=== PATIENT | female | born 1940 | race Caucasian/White ===

== ENCOUNTER 2022-01-11 16:21 | Emergency (ER) | payer MEDICARE, SELFPAY ==
[2022-01-11 16:39] VITALS: BP 140/68; PULSE 92; RESP 16; TEMP 36.7; O2SAT 99
--- NOTE | 2022-01-11 17:25 | ED.SKABFB ---
HPI - Skin/Abscess/Foreign Bdy General Chief complaint: Skin/Abscess/Foreign Body Stated complaint: right leg possible ulcer Time Seen by Provider: 01/11/22 16:50 Source: patient, family, RN notes reviewed and old records reviewed Mode of arrival: ambulatory (with cane) Limitations: no limitations History of Present Illness HPI narrative: 81 year old female accompanied by daughter presents to [facility] with complaints of having lesion to the right lower posterior lateral aspect of leg for about 1 year duration. Patient reports that she has no pain to the area, denies any drainage from lesion area, warmth or any itching. Patient states that she forgot to show it to her doctor at last visit on December 18 where she was told that he was quitting practice and gave her 3 months of her medication. Patient reports that she takes care of her who has had to have amputations of his leg due to diabetes. Patient does have some swelling to bilateral lower extremities, Patient states that since she had a stroke 2 years ago she has had some swelling. MD complaint: lesion (status ulcer with skin discolration) Onset (ago): year(s) (1) Location: [facility] Treatments prior to arrival: other (applies lotion to area.) Related Data Home Medications Medication Instructions Recorded Confirmed amlodipine 5 mg PO DAILY 01/11/22 01/11/22 aspirin 81 mg PO DAILY 01/11/22 01/11/22 atorvastatin 40 mg PO DAILY 01/11/22 01/11/22 lisinopril 10 mg PO DAILY 01/11/22 01/11/22 metformin 500 mg PO DAILY 01/11/22 01/11/22 Allergies Allergy/AdvReac Type Severity Reaction Status Date / Time No Known Allergies Allergy Verified 01/11/22 16:45 Review of Systems Review of Systems: CONSTITUTIONAL: Denies fever, chills, or sweats. EYES: Denies visual changes, redness, or discharge. ENT: Denies rhinorrhea, congestion, sore throat, or otalgia. CARDIOVASCULAR: Denies chest pain, palpitations, or edema. RESPIRATORY: Denies cough or dyspnea. GASTROINTESTINAL: Denies abdominal pain, nausea, vomiting, or diarrhea. GENITOURINARY: Denies dysuria or hematuria. SKIN: Positive for stasis ulcer to right lower leg with some scabbing and skin discoloration.. MUSCULOSKELETAL: Denies back pain, joint pain, or myalgia. NEUROLOGIC: Denies headache, numbness, some weakness right side since CVA 2 years ago. PSYCHIATRIC: Denies anxiety or depression. All systems reviewed & are unremarkable except as noted in HPI and below PMFSH Past Medical History Medical History (Updated 01/11/22 @ 18:23 by Kayla Pollack NP) CVA (cerebral vascular accident) Diabetes Patient reports that she is pre diabetic Elevated cholesterol Hypertension Social History Social History (Updated 01/11/22 @ 18:12 by Kayla Pollack NP) Smoking status: Never smoker Alcohol intake: never Substance use: never Living arrangements: with family Gender identity (if verbalized by the patient): Female Comments At time of signature, agree with nursing past medical, surgical, social and family history. There is no relevant family history pertinent to the presenting complaint Exam Narrative: GENERAL: Well-appearing, well-nourished, and in no acute distress. HEAD: Normocephalic, atraumatic. EYES: PERRLA and EOMI. ENT: Nares clear, no rhinorrhea or epistaxis. Mucous membranes moist.TM's normal with good light reflex, throat pink with no lesions or exudates or any tonsil swelling NECK: Supple.no lymphadenopathy CHEST: Clear to auscultation. No respiratory distress.SAO2 99% on room air HEART: Regular rate and rhythm. No murmur heard. Normal peripheral pulses. ABDOMEN: Soft, nontender, nondistended, normal active bowel sounds. EXTREMITIES: Normal range of motion, some weakness to right leg related to CVA, bilateral pretibial and pedal edema to lower extremities. width 10 cm and length 13 which includes some surrounding redness. pedal pulse palpable to her right foot. SKIN: Warm, dry, venous stasis ulcer right l
== END 2022-01-11 18:07 | disposition home or self-care (01) ==
PROVIDERS: Emergency Provider Registered Nurse
DX: L97.919 Non-pressure chronic ulcer of unspecified part of right lower leg with unspecified severity (principal); I87.8 Other specified disorders of veins; Z86.73 Personal history of transient ischemic attack (TIA), and cerebral infarction without residual deficits; E78.00 Pure hypercholesterolemia, unspecified; I10 Essential (primary) hypertension; R73.03 Prediabetes
CPT/HCPCS: 99213; G0463

== ENCOUNTER 2022-02-07 14:03 | Outpatient (CLI) | payer MEDICARE, SELFPAY ==
--- NOTE | ~2022-02-07 | US_ITS ---
EXAMINATION: US venous doppler LE RT DATE: 02/07/2022 14:27 INDICATION: Right lower limb swelling TECHNIQUE: Grayscale ultrasound images without and with compression and Doppler ultrasound images of the right lower extremity veins were obtained. COMPARISON: None. FINDINGS: The visualized portions of right common femoral vein, profunda (deep) femoral vein, femoral vein, pop liteal vein, peroneal trunk, posterior tibial veins, gastrocnemius vein and greater saphenous vein ou tflow are patent. IMPRESSION: 1. No deep venous thrombosis in the right lower limb. Reviewed, dictated and finalized at location A.
== END 2022-02-07 14:04 | disposition home or self-care (01) ==
LOC: ANHIMG 14:04
PROVIDERS: PCP Family Medicine; Visit Provider Family Medicine
DX: I87.2 Venous insufficiency (chronic) (peripheral) (principal); R60.9 Edema, unspecified; L97.909 Non-pressure chronic ulcer of unspecified part of unspecified lower leg with unspecified severity
CPT/HCPCS: 93971

== ENCOUNTER 2022-03-09 14:21 | Outpatient (CLI) | payer MEDICARE, SELFPAY ==
--- NOTE | ~2022-03-09 | US_ITS ---
EXAMINATION: US art doppler w press LE BI DATE: 03/09/2022 15:14 INDICATION: Lower limb swelling TECHNIQUE: Segmental pressures and plethysmographic and Doppler waveforms of the brachial and lower e xtremity arteries were obtained. COMPARISON: None. FINDINGS: Right and left brachial artery pressures of 123 mm Hg and 129 mm Hg, respectively, are concordant (no rmal difference <= 30 mmHg). The right and left high-thigh pressure indices are 1.57 and 1.19, respec tively (normal > 1.2). The right ankle-brachial index (ROYCE) is 1.05 (normal >= 0.9-1). The right great toe-brachial index (T BI) is 0.91 (normal >= 0.6-0.8). The right lower extremity segmental pressure gradients are increased between the right [id number] popliteal artery and the arteries at the right ankle (normal gradie nts <= 20-30 mmHg between adjacent levels on the same leg or the same levels on the two legs). Arteri al waveforms are biphasic with brisk systolic upstrokes throughout the arteries of the right lower li mb. The left ROYCE is 0.99. The left TBI is 0.78. The left lower extremity segmental pressure gradients are increased between the left [id number] popliteal artery and the left dorsalis pedis artery. Arter ial waveforms are biphasic with brisk systolic upstrokes throughout the arteries of the left lower li mb. IMPRESSION: 1. No significant arterial occlusive disease to either lower limb with normal bilateral ABIs and TBIs . Reviewed, dictated and finalized at location B. IMPRESSION: 1. No significant arterial occlusive disease to either lower limb with normal b ilateral ABIs and TBIs.
== END 2022-03-09 14:22 | disposition home or self-care (01) ==
PROVIDERS: PCP Family Medicine; Visit Provider Family Medicine
DX: R60.0 Localized edema (principal); L97.909 Non-pressure chronic ulcer of unspecified part of unspecified lower leg with unspecified severity; I87.2 Venous insufficiency (chronic) (peripheral); M79.89 Other specified soft tissue disorders
CPT/HCPCS: 93923

== ENCOUNTER 2022-06-10 11:51 | Outpatient (RCR) | payer MEDICARE, SELFPAY ==
[2022-06-10 13:49] VITALS: BMI 24.0
== END 2022-08-29 12:47 | disposition home or self-care (01) ==
LOC: ANHWOC 11:51
PROVIDERS: PCP Family Medicine; Visit Provider Family Medicine
DX: I87.2 Venous insufficiency (chronic) (peripheral) (principal); L97.909 Non-pressure chronic ulcer of unspecified part of unspecified lower leg with unspecified severity; T14.8XXD Other injury of unspecified body region, subsequent encounter
CPT/HCPCS: 99213; G0463

== ENCOUNTER 2022-09-07 13:52 | Outpatient (CLI) | payer MEDICARE, SELFPAY ==
[2022-09-07 19:26] LABS: Basophils Percent Auto 0.5 % (0.2-1.2); Eosinophils Absolute Auto 0.1 K/mm3 (0-0.3); Eosinophils Percent Auto 2.1 % (0-4.4); Hemoglobin 12.4 g/dL (12.0-15.0); Immature Granulocyte Absolute 0.01 K/mm3 (0.00-0.031); Immature Granulocyte Percent A 0.2 % (0-0.5); Lymphocytes Absolute Auto 2.12 K/mm3 (0.9-3.2); Lymphocytes Percent Auto 34.1 % (18.3-44.2); Mean Corpuscular HGB Conc 31.8 g/dl (32-36); Mean Corpuscular Hemoglobin 30.2 pg (26-34); Mean Corpuscular Volume 95.1 fl (80-100); Mean Platelet Volume 11.9 fl (7.4-10.4); Monocytes Absolute Auto 0.7 K/mm3 (0.1-0.6); Monocytes Percent Auto 11.1 % (2.6-8.5); Neutrophils Absolute Auto 3.2 K/mm3 (1.3-6.7); Platelet Count Result 177 k/mm3 (150-375); Red Cell Distribution Width 13.3 % (11.5-14.5); White Blood Count 6.2 K/mm3 (4.5-10.0)
[2022-09-07 19:33] LABS: Alanine Aminotransferase 22 U/L (6-35); Albumin Level 4.3 g/dL (3.5-5.1); Alkaline Phosphatase 85 U/L (38-126); Anion Gap 14 mmol/L (8-16); Aspartate Amino Transferase 43 U/L (14-36); Bilirubin,Total 0.6 mg/dL (0.2-1.3); Blood Urea Nitrogen 20 mg/dL (7-17); Carbon Dioxide 27 mmol/L (22-30); Chloride 100 mmol/L (98-107); Estimated Glomerular Filt Rate > 60; Glucose 118 mg/dL (65-110); Hemoglobin A1C 6.1 % (<5.7); Potassium 3.8 mmol/L (3.4-5.0); Sodium 141 mmol/L (137-145)
== END 2022-09-07 13:53 | disposition home or self-care (01) ==
LOC: ANHBWCLAB 13:54
PROVIDERS: PCP Family Medicine; Visit Provider Family Medicine
DX: E11.9 Type 2 diabetes mellitus without complications (principal); I10 Essential (primary) hypertension; R21 Rash and other nonspecific skin eruption
CPT/HCPCS: 36415; 80053; 83036; 85025

== ENCOUNTER 2023-01-30 14:42 | Outpatient (CLI) | payer MEDICARE, SELFPAY ==
--- NOTE | ~2023-01-30 | XR_ITS ---
EXAM: XR lumbar spine 2-3V DATE: 01/30/2023 15:50 HISTORY: M54.50 - Low back pain, unspecified . COMPARISON: None available. FINDINGS: Osteopenia. Moderate lumbar scoliosis. 5 nonrib-bearing lumbar-type vertebral bodies. Pedic les intact. Mild grade 1 retrolistheses at L1-2, L2-3, and L5-S1. Mild grade 1 anterolisthesis at L4- 5. Vertebral body heights preserved. Multilevel disc space narrowing and marginal osteophytosis. Mult ilevel facet sclerosis and hypertrophy, with interspinous narrowing. Cholecystomy clips. Abdominal ao rtic calcification without evident aneurysm. No fracture or dislocation. IMPRESSION: Multilevel moderate degenerative disc disease. Multilevel moderate facet arthropathy. Reviewed, dictated and finalized at location K.
[2023-01-30 20:01] LABS: Alanine Aminotransferase 24 U/L (6-35); Alkaline Phosphatase 96 U/L (38-126); Anion Gap 7 mmol/L (8-16); Aspartate Amino Transferase 40 U/L (14-36); Bilirubin,Total 0.9 mg/dL (0.2-1.3); Blood Urea Nitrogen 19 mg/dL (7-17); Carbon Dioxide 27 mmol/L (22-30); Chloride 105 mmol/L (98-107); Estimated Glomerular Filt Rate > 60; Glucose 112 mg/dL (65-110); Potassium 4.7 mmol/L (3.4-5.0); Sodium 139 mmol/L (137-145)
[2023-01-30 21:40] LABS: Hemoglobin A1C 5.9 % (<5.7)
== END 2023-01-30 14:43 | disposition home or self-care (01) ==
PROVIDERS: PCP Family Medicine; Visit Provider Family Medicine
DX: E11.9 Type 2 diabetes mellitus without complications (principal); M54.50 Low back pain, unspecified; M51.36 Other intervertebral disc degeneration, lumbar region
CPT/HCPCS: 36415; 72100; 80053; 83036

== ENCOUNTER 2023-02-02 16:14 | Outpatient (CLI) | payer MEDICARE, SELFPAY ==
[2023-02-02 18:55] LABS: Creatinine Urine 234.1 mg/dL
[2023-02-02 19:00] LABS: Microalbumin Urine Random 35.2 mg/L (0-16.7)
== END 2023-02-02 16:15 | disposition home or self-care (01) ==
LOC: ANHBWCLAB 16:15
PROVIDERS: PCP Family Medicine; Visit Provider Family Medicine
DX: E11.9 Type 2 diabetes mellitus without complications (principal)
CPT/HCPCS: 82043

== ENCOUNTER 2023-09-23 13:52 | Emergency (ER) | payer MEDICARE, SELFPAY ==
[2023-09-23 14:01] VITALS: BP 135/66; PULSE 82; RESP 16; TEMP 36.4; O2SAT 99
--- NOTE | 2023-09-23 14:15 | ED.SKABFB ---
HPI - Skin/Abscess/Foreign Bdy General Chief complaint: Extremity Problem,Nontraumatic Stated complaint: Skin Sore/ Right Leg History of Present Illness HPI narrative: patient presents with chronic leg ulcer to right lower extremity. patient has been referred to wound center in the past and present today with concerns for cellulitis to lower extremity no calf pain and no concern for DVT, redness and tenderness to lower leg. Related Data Allergies Allergy/AdvReac Type Severity Reaction Status Date / Time No Known Allergies Allergy Verified 09/23/23 14:14 Review of Systems Review of Systems: CONSTITUTIONAL: Denies fever, chills, or sweats. EYES: Denies visual changes, redness, or discharge. ENT: Denies rhinorrhea, congestion, sore throat, or otalgia. CARDIOVASCULAR: Denies chest pain, palpitations, or edema. RESPIRATORY: Denies cough or dyspnea. GASTROINTESTINAL: Denies abdominal pain, nausea, vomiting, or diarrhea. GENITOURINARY: Denies dysuria or hematuria. SKIN: Denies rash or itching. MUSCULOSKELETAL: Denies back pain, joint pain, or myalgia. NEUROLOGIC: Denies headache, numbness, or weakness. PSYCHIATRIC: Denies anxiety or depression. [facility] Past Medical History Medical History (Updated 09/23/23 @ 14:17 by ANGELIQUE Montoya) CVA (cerebral vascular accident) Diabetes Patient reports that she is pre diabetic Elevated cholesterol Hypertension Social History Social History (Updated 04/24/23 @ 15:36 by Renetta Jean MA) Smoking status: Never smoker Alcohol intake: never Substance use: never Lack of Transportation: No Lack of Food: Never True Current Housing: I Have Housing Concerned About Future Housing: No Difficulty Paying Gas/Electric Bills: No Difficulty Paying for Meds: No Currently Unemployed: No Education: High School Diploma/GED Difficulty w/ Childcare or Family Care: No Living arrangements: with family Gender identity (if verbalized by the patient): Female Comments At time of signature, agree with nursing past medical, surgical, social and family history. There is no relevant family history pertinent to the presenting complaint Exam Narrative: GENERAL: Well-appearing, well-nourished, and in no acute distress. HEAD: Normocephalic, atraumatic. EYES: PERRLA and EOMI. ENT: Nares clear, no rhinorrhea or epistaxis. Mucous membranes moist. NECK: Supple. CHEST: Clear to auscultation. No respiratory distress. HEART: Regular rate and rhythm. No murmur heard. Normal peripheral pulses. ABDOMEN: Soft, nontender, nondistended, normal active bowel sounds. EXTREMITIES: Normal range of motion. No edema. Lower extremity: RIGHT HIP EXAM - SKIN INTACT. NO BRUISING, REDNESS OR SWELLING. NO INGUINAL MASSES OR LYMPHADENOPATHY. GENERALIZED FEMUR AND HIP TENDERNESS. PATIENT HOLDING HIP IN EXTERNAL ROTATION WITH SLIGHT FLEXION OF KNEE. NO BUTTOCK OR SI JOINT TENDERNESS. ROM LIMITED DUE TO PAIN. NORMAL FEMORAL PULSES. BACK EXAM - NO VERTEBRAL POINT SPECIFIC TENDERNESS OR STEP OFFS. NORMAL ROM OF BACK. NORMAL FLEXION AND EXTENSION OF BACK. NO CVA TENDERNESS. LEG EXAM - NO CALF OR ANKLE SWELLING, DISCOLORATION. NORMAL FOOT SENSATION AND CAP REFILL. NORMAL DP PULSE. . 3cm long by 2cm wide area to right lower leg consistent with developing cellulitis. no drainage and no streaking SKIN: Warm, dry, no rash. NEURO: No focal deficits. Alert and oriented x3. [place] Coma Scale Eye Opening: Spontaneous 4 [place] Coma Scale Motor: Obeys Commands 6 [place] Coma Scale Verbal: Oriented 5 [place] Coma Scale Total 15 Course Course Level of Care: Express Care Visit Vital Signs Vital signs: Vital Signs Temperature 36.4 C L 09/23/23 14:01 Pulse Rate 82 09/23/23 14:01 Respiratory Rate 16 09/23/23 14:01 Blood Pressure 135/66 09/23/23 14:01 Pulse Oximetry 99 09/23/23 14:01 Oxygen Delivery Room Air 09/23/23 14:01 Temperature 36.4 C L 09/23/23 14:01 Pulse Rat
== END 2023-09-23 14:20 | disposition home or self-care (01) ==
PROVIDERS: Emergency Provider Nurse Practitioner Family; PCP Family Medicine
DX: L97.819 Non-pressure chronic ulcer of other part of right lower leg with unspecified severity (principal); L03.115 Cellulitis of right lower limb; E11.9 Type 2 diabetes mellitus without complications; I10 Essential (primary) hypertension; Z86.73 Personal history of transient ischemic attack (TIA), and cerebral infarction without residual deficits
CPT/HCPCS: 99213; G0463

== ENCOUNTER 2023-10-26 16:08 | Emergency (ER) | payer MEDICARE, SELFPAY ==
[2023-10-26 16:15] VITALS: BP 128/61; PULSE 84; RESP 16; TEMP 36.2; O2SAT 97
[2023-10-26 16:28] VITALS: BP 128/61; PULSE 84; RESP 16; TEMP 36.2; O2SAT 97
--- NOTE | 2023-10-26 16:35 | ED.GENADULT ---
HPI - General Adult General Chief complaint: Skin/Abscess/Foreign Body Stated complaint: Rash Time Seen by Provider: 10/26/23 16:35 Source: patient, RN notes reviewed and old records reviewed Mode of arrival: ambulatory Limitations: no limitations History of Present Illness HPI narrative: 83-year-old female presents to the [facility] with her son with complaints of dryness redness to the dorsal aspect bilateral thumbs, dorsal aspect right hand, some redness to the dorsal aspect left hand. Patient reports that she had a reaction to clindamycin a month ago. Was worried that this is still a reaction. 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 Reporting pain to the joints. States that she has been pouring alcohol, iodine to her hands. Dorsal aspect of the hands and thumbs are only affected Related Data Allergies Allergy/AdvReac Type Severity Reaction Status Date / Time clindamycin Allergy Unknown Rash Verified 10/16/23 14:45 Review of Systems Review of Systems: All systems reviewed & are unremarkable except as noted in HPI and below Constitutional: Constitutional: Reports no additional constitutional complaints Eyes: Eyes: Reports no additional eye complaints ENT: Reports system reviewed and no additional complaints, except as documented Cardiovascular: Cardiovascular: Reports no additional cardiovascular complaints, Denies chest pain and Denies dyspnea Respiratory: Respiratory: Reports no additional respiratory complaints, Denies chest congestion, Denies cough and Denies dyspnea Gastrointestinal: Gastrointestinal: Reports no additional gastrointestinal complaints, Denies abdominal pain, Denies nausea and Denies vomiting Musculoskeletal: Musculoskeletal: Reports no additional musculoskeletal complaints Integumentary/Breasts: Skin/Breast: Reports as per HPI Neurologic: Reports system reviewed and no additional complaints, except as documented Psychiatric: Psychiatric: Reports no additional psychiatric complaints Allergic/Immunologic: Allergic/Immunologic: Reports no additional allergic/immunologic complaints [facility] Past Medical History Medical History CVA (cerebral vascular accident) Diabetes Patient reports that she is pre diabetic Elevated cholesterol Hypertension Social History Social History Smoking status: Never smoker Alcohol intake: never Substance use: never Lack of Transportation: No Lack of Food: Never True Current Housing: I Have Housing Concerned About Future Housing: No Difficulty Paying Gas/Electric Bills: No Difficulty Paying for Meds: No Currently Unemployed: No Education: High School Diploma/GED Difficulty w/ Childcare or Family Care: No Living arrangements: with family Gender identity (if verbalized by the patient): Female Comments At the time of my signature, I reviewed and agree with the nursing past medical, surgical, social, and family history. There is no relevant family history pertinent to the patient complaint. Exam Const: General: cooperative, comfortable, no acute distress, well developed, alert, ill appearing chronically and well nourished Nutritional Appearance: well nourished Orientation/consciousness: patient oriented x3 Limitations: no limitations HENMT: Head: normal to inspection Ears: hearing grossly normal bilaterally and external ears normal Face/Nose/Sinus: Normal external nose present, Normal nares present, Normal nasal mucous membranes and turbinates present, normal facial exam and face symmetric Face and sinus: normal facial exam and face symmetric Eyes: General: appearance normal, both eyes and all related structures Alignment and Position: alignment normal Periorbital: periorbital findings normal Pupils: Equal, round and reactive pupils present EOM: EOMs intact bilaterally Neck: Neck: normal visual inspection, full ROM, n
== END 2023-10-26 16:53 | disposition home or self-care (01) ==
PROVIDERS: Emergency Provider Nurse Practitioner; PCP Family Medicine
DX: L30.9 Dermatitis, unspecified (principal); E11.9 Type 2 diabetes mellitus without complications; I10 Essential (primary) hypertension; Z86.73 Personal history of transient ischemic attack (TIA), and cerebral infarction without residual deficits
CPT/HCPCS: 99213; G0463

== ENCOUNTER 2024-07-29 19:28 | Emergency (ER) | payer MEDICARE, SELFPAY ==
[2024-07-29 19:38] VITALS: BP 128/61; PULSE 79; RESP 18; TEMP 36.8; O2SAT 98
--- NOTE | 2024-07-29 19:54 | ED.GENADULT ---
HPI - General Adult General Chief complaint: Skin/Abscess/Foreign Body Stated complaint: Rash Time Seen by Provider: 07/29/24 19:54 Source: patient Mode of arrival: ambulatory Limitations: no limitations History of Present Illness HPI narrative: 84-year-old female presented for concern of bilateral hand swelling, blisters, and redness over the past few days. The swelling started after starting valacyclovir, which she was prescribed when she contacted her PCP stating she had shingles per her Internet research. States the swelling is improved since stopping the med. Pt has been wearing plastic gloves when she goes to the bathroom or does certain chores in the home. She reports a few additional blisters to the inner and outer right foot. Says the blisters drain clear fluid. States she has a few scabs to the right lower leg and has been too embarrassed to show anyone. She has been applying ointments to the leg, she was being seen months ago by home health care for chronic wounds to the right lower leg, and was advised not to remove any scabs. States she has not been seen by pcp in many months due to cancelling of appointments, and has not been seen by home health care. Denies numbness, tingling or weakness of the extremities. Related Data Allergies Allergy/AdvReac Type Severity Reaction Status Date / Time clindamycin Allergy Unknown Rash Verified 07/29/24 19:40 Review of Systems Review of Systems: CONSTITUTIONAL: Denies body aches, fever, chills, or sweats. EYES: Denies visual changes, redness, or discharge. ENT: Denies rhinorrhea, congestion CARDIOVASCULAR: Denies chest pain, palpitations RESPIRATORY: Denies cough or dyspnea. GASTROINTESTINAL: Denies abdominal pain, nausea, vomiting, or diarrhea. SKIN: reports redness, blisters to hands; scabs to RLE MUSCULOSKELETAL: Denies back pain, joint pain, or myalgia. NEUROLOGIC: Denies headache, numbness, tingling, or weakness. [facility] Past Medical History Medical History CVA (cerebral vascular accident) Diabetes Patient reports that she is pre diabetic Elevated cholesterol Hypertension Social History Social History Smoking status: Never smoker Alcohol intake: never Substance use: never Lack of Transportation: No Lack of Food: Never True Current Housing: I Have Housing Concerned About Future Housing: No Difficulty Paying Gas/Electric Bills: No Difficulty Paying for Meds: No Currently Unemployed: No Education: High School Diploma/GED Difficulty w/ Childcare or Family Care: No Living arrangements: with family Gender identity (if verbalized by the patient): Female Comments At time of signature, I have reviewed and agree with nursing past medical, surgical, social and family history unless otherwise noted. Please see nursing chart for further information. There is no relevant family history pertinent to the presenting complaint Exam Narrative: GENERAL: Well-appearing ENT: Mucous membranes moist. Oropharynx without edema, erythema or lesions. CHEST: Clear to auscultation. HEART: Regular rate and rhythm. SKIN: Bilateral hands erythematous with mild swelling, cracked fissure to Right 2nd digit. scattered fluid-filled blisters to fingers and palms and right volar wrist area, consistent with hand eczema and dyshidrotic eczema. Right lower leg erythematous with circumferential dry thick flaky skin c/w stasis dermatitis, 2 areas of scabs dark/black in color approx 1.5cm diameter to medial and posterior lower leg. Medial and lateral aspects of right foot with fluid filled blisters, some weeping clear fluid, tender with palpation. LLE 3+ pitting edema, no erythema or wounds Pedal pulses strong and equal bilaterally. Cap refill<3sec. NEURO: Alert and oriented, appears anxious and repetitive. Course Course Emergency Course: Patient
[2024-07-29 20:07] VITALS: BP 128/61; PULSE 79; RESP 18; TEMP 36.8; O2SAT 98
== END 2024-07-29 20:30 | disposition left against medical advice (07) ==
PROVIDERS: Emergency Provider Nurse Practitioner Family; PCP Family Medicine
DX: L03.115 Cellulitis of right lower limb (principal); L30.9 Dermatitis, unspecified; Z86.73 Personal history of transient ischemic attack (TIA), and cerebral infarction without residual deficits; E78.00 Pure hypercholesterolemia, unspecified; I10 Essential (primary) hypertension
CPT/HCPCS: 99211; G0463

== ENCOUNTER 2024-09-06 18:27 | Inpatient (IN) | payer MEDICARE, SELFPAY ==
--- NOTE | ~2024-09-06 | US_ITS ---
EXAMINATION: US venous doppler [facility] DATE: 09/07/2024 10:54 INDICATION: Left lower limb edema. TECHNIQUE: Grayscale ultrasound images without and with compression and Doppler ultrasound images of the left lower extremity veins were obtained. COMPARISON: None. FINDINGS: The visualized portions of left common femoral vein, profunda (deep) femoral vein, femoral vein, popl iteal vein, peroneal veins, posterior tibial veins, and greater saphenous vein outflow are patent. IMPRESSION: 1. No deep venous thrombosis. Reviewed, dictated and finalized at location A.
--- NOTE | ~2024-09-06 | CT_ITS ---
EXAMINATION: CT LE LT w con DATE: 09/07/2024 02:54 INDICATION: Left lower limb edema and erythema and blisters. TECHNIQUE: Computed tomography (CT) of the left lower limb was performed with 100 mL Omnipaque 350 in travenous contrast. Automated exposure control and iterative reconstruction technique were employed. The dose-length product was 1534.30 mGy-cm. COMPARISON: None FINDINGS: There is no fracture. There is moderate left knee osteoarthritis, worst in the medial francisco rtment. No knee joint effusion. There is moderate hallux valgus. There is mild to moderate polyarticu lar osteoarthritis in the foot. There is widespread subcutaneous edema. There is blistering of the sk in at the plantar aspect of the foot. IMPRESSION: 1. No evidence of osteomyelitis. 2. Polyarticular osteoarthritis. Reviewed, dictated and finalized at location A.
[2024-09-06 18:51] VITALS: BP 107/91; PULSE 98; RESP 13; TEMP 36.7; O2SAT 98
[2024-09-06 23:08] LABS: Basophils Percent Auto 0.3 % (0.2-1.2); Eosinophils Absolute Auto 0.2 K/mm3 (0-0.3); Eosinophils Percent Auto 3.2 % (0-4.4); Hematocrit 35.4 % (37.0-47.0); Hemoglobin 11.2 g/dL (12.0-15.0); Immature Granulocyte Absolute 0.01 K/mm3 (0.00-0.031); Immature Granulocyte Percent A 0.1 % (0-0.5); Lymphocytes Absolute Auto 1.52 K/mm3 (0.9-3.2); Lymphocytes Percent Auto 20.2 % (18.3-44.2); Mean Corpuscular HGB Conc 31.6 g/dl (32-36); Mean Corpuscular Hemoglobin 30.4 pg (26-34); Mean Corpuscular Volume 96.2 fl (80-100); Mean Platelet Volume 10.3 fl (7.4-10.4); Monocytes Absolute Auto 0.8 K/mm3 (0.1-0.6); Monocytes Percent Auto 10.5 % (2.6-8.5); Neutrophils Absolute Auto 4.9 K/mm3 (1.3-6.7); Neutrophils Percent Auto 65.7 % (45.5-73.1); Platelet Count Result 162 k/mm3 (150-375); Red Blood Count 3.68 M/mm3 (4.2-5.4); Red Cell Distribution Width 15.6 % (11.5-14.5); White Blood Count 7.5 K/mm3 (4.5-10.0)
--- NOTE | 2024-09-06 23:14 | ED.EXTPRO ---
HPI - Extremity Problem General Chief complaint: Extremity Problem,Nontraumatic Stated complaint: fever, redness to left leg Time Seen by Provider: 09/06/24 22:58 Source: patient Mode of arrival: ambulatory Limitations: no limitations History of Present Illness HPI Narrative: This is an 84-year-old female that presents to the emergency department for redness and swelling of the left lower extremity. Noted yesterday. Reports she has been suffering recently from blisters on her hands and feet. She has been seeing wound care for this. They have been treating her wounds. Reports they sent off a culture and it is still pending. Denies fevers. Related Data Allergies Allergy/AdvReac Type Severity Reaction Status Date / Time cephalexin Allergy Mild Unknown Verified 07/31/24 09:14 clindamycin Allergy Unknown Rash Verified 07/30/24 12:40 Review of Systems Review of Systems: CONSTITUTIONAL: Denies fever SKIN: Reports redness and swelling NEUROLOGIC: Denies numbness All systems reviewed & are unremarkable except as noted in HPI and below PMFSH Past Medical History Medical History CVA (cerebral vascular accident) Diabetes Patient reports that she is pre diabetic Elevated cholesterol Hypertension Social History Social History Smoking status: Never smoker Alcohol intake: never Substance use: never Lack of Transportation: No Lack of Food: Never True Current Housing: I Have Housing Concerned About Future Housing: No Difficulty Paying Gas/Electric Bills: No Difficulty Paying for Meds: No Currently Unemployed: No Education: High School Diploma/GED Difficulty w/ Childcare or Family Care: No Living arrangements: with family Gender identity (if verbalized by the patient): Female Exam Narrative: GENERAL: Well-appearing, well-nourished, and in no acute distress. HEAD: Normocephalic, atraumatic. EYES: EOMI. CHEST: Clear to auscultation. No respiratory distress. No wheezes rales or rhonchi HEART: Regular rate and rhythm. No murmur heard. Normal peripheral pulses. EXTREMITIES: Normal range of motion. Erythema and swelling noted in the left lower extremity from the mid thigh down into the foot. Several blisters noted on the left foot. Normal DP and PT pulses. SKIN: Warm, dry, no rash. NEURO: No focal deficits. Alert and oriented x3. PSYCH: Normal mood and affect Course Course Emergency Course: Patient and family updated on workup and recommendation for admission Consultations Consultation #1: Spoke with hospitalist about patient and workup who accepts admission Date: 09/07/24 Vital Signs Vital signs: Vital Signs Temperature 98.0 F 09/06/24 18:51 Pulse Rate 98 09/06/24 18:51 Respiratory Rate 13 09/06/24 18:51 Blood Pressure 107/91 H 09/06/24 18:51 Pulse Oximetry 98 09/06/24 18:51 Oxygen Delivery Room Air 09/06/24 18:51 Temperature 98.0 F 09/06/24 18:51 Pulse Rate 84 09/07/24 01:18 Respiratory Rate 14 09/07/24 01:18 Blood Pressure 120/56 L 09/07/24 01:18 Pulse Oximetry 100 09/07/24 01:18 Oxygen Delivery Room Air 09/06/24 18:51 MDM - Extremity (Nontraumatic) MDM Narrative Medical decision making narrative: patient presents to the emergency department for left lower extremity redness and swelling. 1st noted yesterday. Patient reportedly has been having trouble with blisters of her hands and feet. This is been ongoing intermittently over the last several months. Has been on several different antibiotics. She is afebrile and nontoxic appearing. Exam today is consistent with cellulitis. Cbc without leukocytosis. Inflammatory markers are elevated. Blood cultures obtained and patient started on IV antibiotics. D-dimer elevated, but age adjusted is not elevated. CT lower extremity and obtained which is without evidence of abscess or soft tissue gas. Spoke with hospitalist about patient and workup who accepts admission Differential Diagnosis Differential diagnosis: Likely cellulitis and deep vein thrombosis of lower extremity Lab Data Attestation: I reviewed the patient's lab results. 09/06/24 22:59 09/06/24 22:59 Labs: Lab Results 09/06/24 09/06/24 09/06/24 Range/Units 00:10 22:57 22:59 WBC 7.5 (4.5-10.0) K/mm3 RBC 3.68 L (4.2-5.4) M/mm3 Hgb 11.2 L (12.0-15.0) g/dL Hct 35.4 L (37.0-47.0) % MCV 96.2 (80-100) fl MCH 30.4 (26-34) pg MCHC 31.6 L (32-36) g/dl RDW 15.6 H (11.5-14.5) % Plt Count 162 (150-375) k/mm3 MPV 10.3 (7.4-10.4) fl Immature Gran % (Auto) 0.1 (0-0.5) % Neut % (Auto) 65.7 (45.5-73.1) % Lymph % (Auto) 20.2 (18.3-44.2) % [place] % (Auto) 10.5 H (2.6-8.5) % Eos % (Auto) 3.2 (0-4.4) % Baso % (Auto) 0.3 (0.2-1.2) % Lymph # (Auto) 1.52 (0.9-3.2) K/mm3 [place] # (Auto) 0.8 H (0.1-0.6) K/mm3 Eos # (Auto) 0.2 (0-0.3) K/mm3 Baso # (Auto) 0.0 (0.0-0.1) K/mm3 Abs Immat Gran (auto) 0.01 (0.00-0.031) K/mm3 Absolute Neuts (auto) 4.9 (1.3-6.7) K/mm3 Absolute Nucleated RBC 0.000 (0.0-0.012) K/mm3 Nucleated RBC % 0.0 (0.0-0.2) % ESR 105 H (0-20) mm/hr PT 13.4 (11.1-14.7) Seconds INR 1.0 APTT 32.9 (22.3-36.8) Seconds D-Dimer 0.60 H (<0.48) ug/mL Sodium Cancelled Potassium Chloride Carbon Dioxide Anion Gap BUN Creatinine Estim Creat Clear Calc Estimated GFR Glucose Lactic Acid 1.1 (0.7-2.0) mmol/L Calcium C-Reactive Protein (<1.0) mg/dL 09/06/24 09/06/24 09/06/24 Range/Units 22:59 22:59 22:59 WBC (4.5-10.0) K/mm3 RBC (4.2-5.4) M/mm3 Hgb (12.0-15.0) g/dL Hct (37.0-47.0) % MCV (80-100) fl MCH (26-34) pg MCHC (32-36) g/dl RDW (11.5-14.5) % Plt Count (150-375) k/mm3 MPV (7.4-10.4) fl Immature Gran % (Auto) (0-0.5) % Neut % (Auto) (45.5-73.1) % Lymph % (Auto) (18.3-44.2) % [place] % (Auto) (2.6-8.5) % Eos % (Auto) (0-4.4) % Baso % (Auto) (0.2-1.2) % Lymph # (Auto) (0.9-3.2) K/mm3 [place] # (Auto) (0.1-0.6) K/mm3 Eos # (Auto) (0-0.3) K/mm3 Baso # (Auto) (0.0-0.1) K/mm3 Abs Immat Gran (auto) (0.00-0.031) K/mm3 Absolute Neuts (auto) (1.3-6.7) K/mm3 Absolute Nucleated RBC (0.0-0.012) K/mm3 Nucleated RBC % (0.0-0.2) % ESR (0-20) mm/hr PT (11.1-14.7) Seconds INR APTT (22.3-36.8) Seconds D-Dimer (<0.48) ug/mL Sodium 138 Potassium Cancelled 4.6 Chloride Cancelled 102 Carbon Dioxide Cancelled Anion Gap BUN Creatinine Estim Creat Clear Calc Estimated GFR Glucose Lactic Acid (0.7-2.0) mmol/L Calcium C-Reactive Protein (<1.0) mg/dL 09/06/24 09/06/24 09/06/24 Range/Units 22:59 22:59 22:59 WBC (4.5-10.0) K/mm3 RBC (4.2-5.4) M/mm3 Hgb (12.0-15.0) g/dL Hct (37.0-47.0) % MCV (80-100) fl MCH (26-34) pg MCHC (32-36) g/dl RDW (11.5-14.5) % Plt Count (150-375) k/mm3 MPV (7.4-10.4) fl Immature Gran % (Auto) (0-0.5) % Neut % (Auto) (45.5-73.1) % Lymph % (Auto) (18.3-44.2) % [place] % (Auto) (2.6-8.5) % Eos % (Auto) (0-4.4) % Baso % (Auto) (0.2-1.2) % Lymph # (Auto) (0.9-3.2) K/mm3 [place] # (Auto) (0.1-0.6) K/mm3 Eos # (Auto) (0-0.3) K/mm3 Baso # (Auto) (0.0-0.1) K/mm3 Abs Immat Gran (auto) (0.00-0.031) K/mm3 Absolute Neuts (auto) (1.3-6.7) K/mm3 Absolute Nucleated RBC (0.0-0.012) K/mm3 Nucleated RBC % (0.0-0.2) % ESR (0-20) mm/hr PT (11.1-14.7) Seconds INR APTT (22.3-36.8) Seconds D-Dimer (<0.48) ug/mL Sodium Potassium Chloride Carbon Dioxide 26 Anion Gap Cancelled 10 BUN Cancelled 24 H Creatinine Cancelled Estim Creat Clear Calc Estimated GFR Glucose Lactic Acid (0.7-2.0) mmol/L Calcium C-Reactive Protein (<1.0) mg/dL 09/06/24 09/06/24 09/06/24 Range/Units 22:59 22:59 22:59 WBC (4.5-10.0) K/mm3 RBC (4.2-5.4) M/mm3 Hgb (12.0-15.0) g/dL Hct (37.0-47.0) % MCV (80-100) fl MCH (26-34) pg MCHC (32-36) g/dl RDW (11.5-14.5) % Plt Count (150-375) k/mm3 MPV (7.4-10.4) fl Immature Gran % (Auto) (0-0.5) % Neut % (Auto) (45.5-73.1) % Lymph % (Auto) (18.3-44.2) % [place] % (Auto) (2.6-8.5) % Eos % (Auto) (0-4.4) % Baso % (Auto) (0.2-1.2) % Lymph # (Auto) (0.9-3.2) K/mm3 [place] # (Auto) (0.1-0.6) K/mm3 Eos # (Auto) (0-0.3) K/mm3 Baso # (Auto) (0.0-0.1) K/mm3 Abs Immat Gran (auto) (0.00-0.031) K/mm3 Absolute Neuts (auto) (1.3-6.7) K/mm3 Absolute Nucleated RBC (0.0-0.012) K/mm3 Nucleated RBC % (0.0-0.2) % ESR (0-20) mm/hr PT (11.1-14.7) Seconds INR APTT (22.3-36.8) Seconds D-Dimer (<0.48) ug/mL Sodium Potassium Chloride Carbon Dioxide Anion Gap BUN Creatinine 0.50 L Estim Creat Clear Calc Cancelled 52 Estimated GFR Cancelled > 60 Glucose Cancelled Lactic Acid (0.7-2.0) mmol/L Calcium C-Reactive Protein (<1.0) mg/dL 09/06/24 09/06/24 Range/Units 22:59 22:59 WBC (4.5-10.0) K/mm3 RBC (4.2-5.4) M/mm3 Hgb (12.0-15.0) g/dL Hct (37.0-47.0) % MCV (80-100) fl MCH (26-34) pg MCHC (32-36) g/dl RDW (11.5-14.5) % Plt Count (150-375) k/mm3 MPV (7.4-10.4) fl Immature Gran % (Auto) (0-0.5) % Neut % (Auto) (45.5-73.1) % Lymph % (Auto) (18.3-44.2) % [place] % (Auto) (2.6-8.5) % Eos % (Auto) (0-4.4) % Baso % (Auto) (0.2-1.2) % Lymph # (Auto) (0.9-3.2) K/mm3 [place] # (Auto) (0.1-0.6) K/mm3 Eos # (Auto) (0-0.3) K/mm3 Baso # (Auto) (0.0-0.1) K/mm3 Abs Immat Gran (auto) (0.00-0.031) K/mm3 Absolute Neuts (auto) (1.3-6.7) K/mm3 Absolute Nucleated RBC (0.0-0.012) K/mm3 Nucleated RBC % (0.0-0.2) % ESR (0-20) mm/hr PT (11.1-14.7) Seconds INR APTT (22.3-36.8) Seconds D-Dimer (<0.48) ug/mL Sodium Potassium Chloride Carbon Dioxide Anion Gap BUN Creatinine Estim Creat Clear Calc Estimated GFR Glucose 112 H Lactic Acid (0.7-2.0) mmol/L Calcium Cancelled 8.9 C-Reactive Protein 7.2 H (<1.0) mg/dL Imaging Data My impression: CT lower extremity left: no soft tissue gas or focal abscess noted. findings of cellulitis Critical Care Time Critical Care Time Critical Care Time: No Discharge Plan Discharge Clinical Impression: Cellulitis Patient Disposition: Still a Patient Condition: Stable Prescriptions: No Action cephalexin 500 mg capsule 500 mg PO Q12H Qty: 14 0RF amlodipine 5 mg tablet 5 mg PO DAILY Qty: 90 1RF metformin 500 mg tablet 500 mg PO DAILY Qty: 90 3RF atorvastatin 40 mg tablet 40 mg PO DAILY Qty: 90 3RF lisinopril 10 mg tablet 10 mg PO DAILY Qty: 90 3RF valacyclovir 1 gram tablet 1,000 mg PO Q8H Qty: 21 0RF doxycycline hyclate 100 mg capsule See Rx Instructions .ROUTE .COMPLEX Qty: 14 0RF Dose Instruction: TAKE 1 CAPSULE BY MOUTH TWICE DAILY Rx Instructions: TAKE 1 CAPSULE BY MOUTH TWICE DAILY triamcinolone acetonide 0.025 % cream See Rx Instructions .ROUTE .COMPLEX Qty: 15 0RF Dose Instruction: APPLY TOPICALLY TO THE AFFECTED AREA TWICE DAILY Rx Instructions: APPLY TOPICALLY TO THE AFFECTED AREA TWICE DAILY Follow-up/Referrals: Pedro Guzman MD [Primary Care Provider] -
[2024-09-06 23:22] LABS: Anion Gap 10 mmol/L (4-12); Blood Urea Nitrogen 24 mg/dL (7-17); CRP 7.2 mg/dL (<1.0); Calcium 8.9 mg/dL (8.4-10.2); Carbon Dioxide 26 mmol/L (22-30); Chloride 102 mmol/L (98-107); Estimated CRCL calculation 52 ml/min; Estimated Glomerular Filt Rate > 60; Glucose 112 mg/dL (65-110); Potassium 4.6 mmol/L (3.4-5.0); Sodium 138 mmol/L (137-145)
[2024-09-07] VITALS (22 sets, daily range): BP systolic 72–126; BP diastolic 48–75; PULSE 65–87; RESP 14–20; TEMP 36.6–36.7; O2SAT 94–100; BMI 24.2
[2024-09-07 00:22] LABS: Prothrombin Time 13.4 Seconds (11.1-14.7)
[2024-09-07 00:23] LABS: Partial Thromboplastin Time 32.9 Seconds (22.3-36.8)
[2024-09-07 00:26] LABS: Lactic Acid Reflex 1.1 mmol/L (0.7-2.0)
[2024-09-07 00:48] LABS: Erythrocyte Sedimentation Rate 105 mm/hr (0-20)
--- NOTE | 2024-09-07 01:14 | PC.NURSE ---
maite winn, 1gm tylenol po
[2024-09-07] MEDS: ACETAMINOPHEN 500 MG TABLET 1000 MG PO (01:19)
[2024-09-07] MEDS: PIPERACILLN/TAZ 3.375GM/NS50ML 3.375 GM/50 ML BAG IVPB (02:47)
--- NOTE | 2024-09-07 05:11 | ADMGEN ---
This patient, Bambi Chawla, was admitted to 3 [facility] Surg Room 315-02. Patient/family oriented to hospital policies and general routines including ID bracelet, bed and alarms, visiting hours, pain management, procedures, bathroom and other care routines, personal items, smoking policy, room service/diet, and visiting hours. Information on how to activate the Rapid Response Team has been discussed. Patient/Family are encouraged to report perceived risks to care and to ask questions if they do not understand what they are told or what they should do.
--- NOTE | 2024-09-07 05:28 | PM.IMHP ---
H&P: HPI History of Present Illness Date/Time: 09/07/24 05:28 Chief Complaint: Swelling and redness of left leg Narrative: 84-year-old female with a history of ehi-erbsrlb-zvefgifcq diabetes mellitus, CVA with residual left-sided paresthesias, hypertension, chronic venous stasis/chronic insufficiency. She is chaperoned by her daughter. The patient lives with her . The story is as follows: Approximately a month ago the patient began to develop blisters on the hands and feet. At 1 point she was in accurately diagnosed with shingles. She was given valacyclovir. She was told to see a associate professor of automation but could not get in until January. She has been able to see a meat specialist at [facility] in the past few weeks at which point a biopsy was done on the medial side of her right lower extremity which the patient self reports resulted as cellulitis. Patient has had difficulty walking due to the biggest blister being on the sole of her left foot. She does not report itching but does report pain sometimes at rest and with pressure. The blisters are filled with clear fluid. They do not slough off easily. This is the 1st time this has happened. No family history of blisters. Denies abdominal pain nausea vomiting chest pain shortness of breath change in vision or fever. She denies any bloody stool denies diarrhea. Denies blisters on her mucous membranes. At the time of evaluation at [facility] ER on 09/07/2024 the patient has 1 blister on her left foot plantar surface as aforementioned. The other blisters on her hands and right foot have healed. She is primarily presenting because since her meat specialist popped a blister on her left foot about a week ago she has developed increasing swelling and redness and pain of the entire left leg. ER evaluation demonstrates erythema and edema of the bilateral lower extremity only sparing the upper thigh. There is no purulence or open wounds. Her leg is warm to touch and tender to palpation. It is significantly edematous. There is a large golf ball sized clear fluid-filled blister on the middle of her plantar surface of left foot. It is nontender. There is no purulent drainage. Pedal pulses are intact. Vitals largely acceptable. Hemoglobin 11.2. CRP elevated at 7. She was given Zosyn and vancomycin. Admitted on 09/07/2024 under the hospitalist service for left lower extremity cellulitis nonpurulent. Review of Systems Review of Systems: All systems reviewed & are unremarkable except as noted in HPI and below (Subjective) [facility] Past Medical History Medical History CVA (cerebral vascular accident) Diabetes Patient reports that she is pre diabetic Elevated cholesterol Hypertension Social History Social History Smoking status: Never smoker Alcohol intake: never Substance use: never Do You Feel Safe in your Home?: Yes Lack of Transportation: YES Lack of Food: Never True Current Housing: I Have Housing Concerned About Future Housing: No Difficulty Paying Gas/Electric Bills: No Difficulty Paying for Meds: No Currently Unemployed: No Education: High School Diploma/GED Difficulty w/ Childcare or Family Care: No Living arrangements: with family Gender identity (if verbalized by the patient): Female Spiritual care concerns: No Meds Home Medications and Allergies Home Medications Medication Instructions Recorded Confirmed Type amlodipine 5 mg tablet 5 mg PO DAILY #90 tabs 08/30/23 09/07/24 Rx metformin 500 mg tablet 500 mg PO DAILY #90 tabs 03/06/24 09/07/24 Rx atorvastatin 40 mg tablet 40 mg PO DAILY #90 tabs 03/07/24 09/07/24 Rx lisinopril 10 mg tablet 10 mg PO DAILY #90 tabs 03/07/24 09/07/24 Rx Adult Low Dose Aspirin 1 tab-cap PO DAILY 09/07/24 09/07/24 History Allergies Allergy/AdvReac Type Severity Reaction Status Date / Time cephalexin Allergy Mild Unknown Verified 07/31/24 09:14 clindamycin Allergy Unknown Rash Verified 07/30/24 12:40 Vital Signs Vital Signs - 24 hr 09/06/24 18:51 09/07/24 01:18 09/07/24 04:43 Temperature 98.0 F 97.9 F Pulse Rate 98 84 65 Respiratory Rate 13 14 16 Blood Pressure 107/91 H 120/56 L 95/50 L Pulse Oximetry 98 100 98 Oxygen Delivery Room Air 09/07/24 02:49 09/07/24 02:50 09/07/24 03:00 Temperature Pulse Rate Respiratory Rate Blood Pressure 116/56 L Pulse Oximetry 98 97 96 Oxygen Delivery 09/07/24 03:01 09/07/24 03:15 09/07/24 03:16 Temperature Pulse Rate Respiratory Rate Blood Pressure 99/51 L 101/50 L Pulse Oximetry 96 94 95 Oxygen Delivery 09/07/24 03:30 09/07/24 03:31 09/07/24 03:47 Temperature Pulse Rate Respiratory Rate Blood Pressure 100/51 L 126/69 Pulse Oximetry 95 95 98 Oxygen Delivery 09/07/24 03:48 09/07/24 04:00 09/07/24 04:01 Temperature Pulse Rate Respiratory Rate Blood Pressure 72/59 L Pulse Oximetry 97 97 96 Oxygen Delivery 09/07/24 04:04 09/07/24 04:15 09/07/24 04:16 Temperature Pulse Rate Respiratory Rate Blood Pressure 99/68 L 100/48 L Pulse Oximetry 94 96 95 Oxygen Delivery 09/07/24 04:30 09/07/24 04:31 Temperature Pulse Rate Respiratory Rate Blood Pressure 95/50 L Pulse Oximetry 95 95 Oxygen Delivery Exam Const: General: comfortable and no acute distress Other: A&O x3. Chaperoned by her daughter. HENMT: Mouth: Yes moist mucous membranes Other: No lesions Eyes: Sclera: sclerae normal Pupils: Equal, round and reactive pupils present EOM: EOMs intact bilaterally Other: Conjunctiva intact. No lesions. Neck: Neck: supple Resp: Effort & Inspection: normal respiratory effort Auscultation: clear to auscultation bilaterally Cardio: Rate: regular rate Rhythm: regular rhythm Heart sounds: no gallops, no murmurs and no rubs GI: Inspection: non-distended GI Palp: Yes Soft to palpation : General: Yes bladder normal to palpation Extrem: Other: Left lower extremity erythema edema and tenderness to palpation only sparing the upper thigh. Pedal pulses intact. Golfball size clear filled blister on the plantar surface of left foot. Nontender. 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 H&P: Results Labs Labs: Short CBC 09/06/24 Range/Units 22:59 WBC 7.5 (4.5-10.0) K/mm3 Hgb 11.2 L (12.0-15.0) g/dL Hct 35.4 L (37.0-47.0) % Plt Count 162 (150-375) k/mm3 BMP 09/06/24 09/06/24 09/06/24 22:59 22:59 22:59 Sodium Cancelled 138 Potassium Cancelled 4.6 Chloride Cancelled Carbon Dioxide BUN Creatinine Glucose Calcium 09/06/24 09/06/24 09/06/24 22:59 22:59 22:59 Sodium Potassium Chloride 102 Carbon Dioxide Cancelled 26 BUN Cancelled 24 H Creatinine Cancelled Glucose Calcium 09/06/24 09/06/24 09/06/24 22:59 22:59 22:59 Sodium Potassium Chloride Carbon Dioxide BUN Creatinine 0.50 L Glucose Cancelled 112 H Calcium Cancelled 8.9 Assessment and Plan Assessment and plan (1) Cellulitis of leg, left: Code(s): L03.116 - Cellulitis of left lower limb Status: Acute (2) Blister of skin with infection: Status: Acute Plan 84-year-old female with a history of uov-bbxjgcf-sptayworr diabetes mellitus, CVA with residual left-sided paresthesias, hypertension, chronic venous stasis/chronic insufficiency. She is chaperoned by her daughter. The patient lives with her . The story is as follows: Approximately a month ago the patient began to develop blisters on the hands and feet. At 1 point she was in accurately diagnosed with shingles. She was given valacyclovir. She was told to see a associate professor of automation but could not get in until January. She has been able to see a meat specialist at [facility] in the past few weeks at which point a biopsy was done on the medial side of her right lower extremity which the patient self reports resulted as cellulitis. Patient has had difficulty walking due to the biggest blister being on the sole of her left foot. She does not report itching but does report pain sometimes at rest and with pressure. The blisters are filled with clear fluid. They do not slough off easily. This is the 1st time this has happened. No family history of blisters. Denies abdominal pain nausea vomiting chest pain shortness of breath change in vision or fever. She denies any bloody stool denies diarrhea. Denies blisters on her mucous membranes. At the time of evaluation at [facility] ER on 09/07/2024 the patient has 1 blister on her left foot plantar surface as aforementioned. The other blisters on her hands and right foot have healed. She is primarily presenting because since her meat specialist popped a blister on her left foot about a week ago she has developed increasing swelling and redness and pain of the entire left leg. ER evaluation demonstrates erythema and edema of the bilateral lower extremity only sparing the upper thigh. There is no purulence or open wounds. Her leg is warm to touch and tender to palpation. It is significantly edematous. There is a large golf ball sized clear fluid-filled blister on the middle of her plantar surface of left foot. It is nontender. There is no purulent drainage. Pedal pulses are intact. Vitals largely acceptable. Hemoglobin 11.2. CRP elevated at 7. She was given Zosyn and vancomycin. Admitted on 09/07/2024 under the hospitalist service for left lower extremity cellulitis nonpurulent. ----- These do not appear to be friction blisters. Also, she is not itchy. It is not shingles. 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 In any case, have continued to advised the patient follow-up with Dermatology for longer-term management. Consult Wound Care. Being that the blisters appeared migratory in fashion on the hands and feet did not believe this is related to chronic venous insufficiency. 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 It is not present on the left lower extremity, the patient does report there is mild swelling off and on of the left lower extremity. Wonder if this has to do with her prior CVA with left-sided residual paresthesias. Check ultrasound venous Doppler of left lower extremity to rule out DVT. Received vancomycin and Zosyn in the ER. Continue vancomycin. Incidentally blood cultures have been drawn in the ER. She is having a difficult time walking due to the large blister on her left foot. Consult Physical therapy. Her cellulitis is likely secondary to manipulation of a previous blister on her left foot. If the patient so wishes then drainage of this large left foot blister could be performed with the consideration that it may introduce another nidus of infection, however it may be prudent do this while she is receiving IV antibiotics here at the hospital. Hemoglobin 11.2. Check iron studies and ferritin and folate and B12. ----- SCD on right leg. Saline lock IV. Heart healthy and diabetic diet. Accu-Cheks a.c. HS with low-dose insulin sliding scale. Patient wishes to be full code. Home medication list is currently being verified. Restart medications as appropriate. Hospitalist MIPS Advance Care Plan I have confirmed that the patient's Advanced Care Plan is present, code status is documented, or surrogate decision maker is listed in patient medical record.: Yes Medication Reconciliation I have utilized all available resources to obtain, update and review the patients current medications (includes all prescriptions, OTC, herbals, cannabis, and nutritional supplements).: Yes
[2024-09-07 06:15] LABS: Hematocrit 33.3 % (37.0-47.0); Hemoglobin 10.3 g/dL (12.0-15.0); Mean Corpuscular HGB Conc 30.9 g/dl (32-36); Mean Corpuscular Hemoglobin 29.8 pg (26-34); Mean Corpuscular Volume 96.2 fl (80-100); Mean Platelet Volume 10.3 fl (7.4-10.4); Platelet Count Result 161 k/mm3 (150-375); Red Blood Count 3.46 M/mm3 (4.2-5.4); Red Cell Distribution Width 15.6 % (11.5-14.5); White Blood Count 7.6 K/mm3 (4.5-10.0)
[2024-09-07] MEDS: VANCOMYCIN 1,000 MG/NS 250 ML 1,000 MG/250 ML BAG 250 MG IVPB (06:28)
[2024-09-07 06:31] LABS: Alanine Aminotransferase 31 U/L (6-35); Albumin Level 3.5 g/dL (3.5-5.1); Alkaline Phosphatase 68 U/L (38-126); Anion Gap 9 mmol/L (4-12); Aspartate Amino Transferase 39 U/L (14-36); Bilirubin,Total 0.8 mg/dL (0.2-1.3); Blood Urea Nitrogen 20 mg/dL (7-17); Calcium 8.6 mg/dL (8.4-10.2); Carbon Dioxide 24 mmol/L (22-30); Chloride 104 mmol/L (98-107); Estimated CRCL calculation 52 ml/min; Estimated Glomerular Filt Rate > 60; Glucose 110 mg/dL (65-110); Magnesium 2.1 mg/dL (1.6-2.3); Potassium 4.9 mmol/L (3.4-5.0); Sodium 137 mmol/L (137-145)
[2024-09-07 06:43] LABS: Iron 14 ug/dL (37-170)
[2024-09-07 06:52] LABS: Percent Iron Saturation 5 % (20-50)
[2024-09-07 07:33] LABS: Folic Acid 17.2 ng/mL (2.76->20)
--- NOTE | 2024-09-07 07:37 | PM.IMPN ---
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 In any case, have continued to advised the patient follow-up with Dermatology for longer-term management. -Consult Wound Care. Being that the blisters appeared migratory in fashion on the hands and feet did not believe this is related to chronic venous insufficiency. 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 It is not present on the left lower extremity, the patient does report there is mild swelling off and on of the left lower extremity. Wonder if this has to do with her prior CVA with left-sided residual paresthesias. Check ultrasound venous Doppler of left lower extremity to rule out DVT. Received vancomycin and Zosyn in the ER. Continue vancomycin. - BC obtained in ED- follow - She is having a difficult time walking due to the large blister on her left foot- will consult Physical therapy. Her cellulitis is likely secondary to manipulation of a previous blister on her left foot. If the patient so wishes then drainage of this large left foot blister could be performed with the consideration that it may introduce another nidus of infection, however it may be prudent do this while she is receiving IV antibiotics here at the hospital. CT lower extremities completed: IMPRESSION: 1. No evidence of osteomyelitis. 2. Polyarticular osteoarthritis (2) Blister of skin with infection: Status: Acute Assessment and Plan: see above (3) Hypertension: Code(s): I10 - Essential (primary) hypertension Status: Acute Assessment and Plan: on home malodipine 5 mg daily, lisinopril 10 mg daily (4) CVA (cerebral vascular accident): Code(s): I63.9 - Cerebral infarction, unspecified Status: Acute Assessment and Plan: -continue asa, statin (5) Diabetes: Code(s): E11.9 - Type 2 diabetes mellitus without complications Status: Acute Assessment and Plan: will hold home metfromin 500 mg daily Accu-Checks a.c. HS with low-dose insulin sliding scale. - hypoglycemia protocol Plan 84-year-old female with a history of ymk-mofhrtm-yenoyljwg diabetes mellitus, CVA with residual left-sided paresthesias, hypertension, chronic venous stasis/chronic insufficiency. She is chaperoned by her daughter. The patient lives with her . The story is as follows: Approximately a month ago the patient began to develop blisters on the hands and feet. At 1 point she was in accurately diagnosed with shingles. She was given valacyclovir. She was told to see a biochemical engineer but could not get in until January. She has been able to see a loan specialist at [facility] in the past few weeks at which point a biopsy was done on the medial side of her right lower extremity which the patient self reports resulted as cellulitis. Patient has had difficulty walking due to the biggest blister being on the sole of her left foot. She does not report itching but does report pain sometimes at rest and with pressure. The blisters are filled with clear fluid. They do not slough off easily. This is the 1st time this has happened. No family history of blisters. Denies abdominal pain nausea vomiting chest pain shortness of breath change in vision or fever. She denies any bloody stool denies diarrhea. Denies blisters on her mucous membranes. At the time of evaluation at [facility] ER on 09/07/2024 the patient has 1 blister on her left foot plantar surface as aforementioned. The other blisters on her hands and right foot have healed. She is primarily presenting because since her loan specialist popped a blister on her left foot about a week ago she has developed increasing swelling and redness and pain of the entire left leg. Hemoglobin 11.2. Check iron studies and ferritin and folate and B12. SCD on right leg. Saline lock IV. Heart healthy and diabetic diet. Patient wishes to be full code. Home medication list is currently being verified. Restart medications as appropriate. Time Spent With Patient Time with patient: Greater than 35 minutes Subjective Date/time seen: 09/07/24 07:37 Interval history: Narrative retrieved from h/p: 84-year-old female with a history of tdr-zzuvzdt-ycvgjdftc diabetes mellitus, CVA with residual left-sided paresthesias, hypertension, chronic venous stasis/chronic insufficiency. She is chaperoned by her daughter. The patient lives with her . The story is as follows: Approximately a month ago the patient began to develop blisters on the hands and feet. At 1 point she was in accurately diagnosed with shingles. She was given valacyclovir. She was told to see a biochemical engineer but could not get in until January. She has been able to see a loan specialist at [facility] in the past few weeks at which point a biopsy was done on the medial side of her right lower extremity which the patient self reports resulted as cellulitis. Patient has had difficulty walking due to the biggest blister being on the sole of her left foot. She does not report itching but does report pain sometimes at rest and with pressure. The blisters are filled with clear fluid. They do not slough off easily. This is the 1st time this has happened. No family history of blisters. Denies abdominal pain nausea vomiting chest pain shortness of breath change in vision or fever. She denies any bloody stool denies diarrhea. Denies blisters on her mucous membranes. At the time of evaluation at [facility] ER on 09/07/2024 the patient has 1 blister on her left foot plantar surface as aforementioned. The other blisters on her hands and right foot have healed. She is primarily presenting because since her loan specialist popped a blister on her left foot about a week ago she has developed increasing swelling and redness and pain of the entire left leg. ER evaluation demonstrates erythema and edema of the bilateral lower extremity only sparing the upper thigh. There is no purulence or open wounds. Her leg is warm to touch and tender to palpation. It is significantly edematous. There is a large golf ball sized clear fluid-filled blister on the middle of her plantar surface of left foot. It is nontender. There is no purulent drainage. Pedal pulses are intact. Vitals largely acceptable. Hemoglobin 11.2. CRP elevated at 7. She was given Zosyn and vancomycin. Admitted on 09/07/2024 under the hospitalist service for left lower extremity cellulitis nonpurulent. 09/07 pt is seen and examined. She is calm, pleasant, reports slight headaches- other branch feels fine. Wound care consult is ordered but not available over the weekend. She reports no n/v/d. Review of Systems Constitutional: Constitutional: Denies body ache(s) and Denies chills Cardiovascular: Cardiovascular: Denies chest pain Respiratory: Respiratory: Denies cough Gastrointestinal: Gastrointestinal: Denies abdominal pain Genitourinary: Genitourinary: Denies hematuria Musculoskeletal: Comments: generalized weakness Integumentary/Breasts: Skin/Breast: Reports rash and Reports skin pain Exam Const: General: comfortable and no acute distress Other: A&O x3. Chaperoned by her daughter. HENMT: Mouth: Yes moist mucous membranes Other: No lesions Eyes: Sclera: sclerae normal Pupils: Equal, round and reactive pupils present EOM: EOMs intact bilaterally Other: Conjunctiva intact. No lesions. Neck: Neck: supple Resp: Effort & Inspection: normal respiratory effort Auscultation: clear to auscultation bilaterally Cardio: Rate: regular rate Rhythm: regular rhythm Heart sounds: no gallops, no murmurs and no rubs GI: Inspection: non-distended : General: Yes bladder normal to palpation Bimanual exam- vagina & uterus: bladder normal to palpation Neuro: Cranial nerves: Yes Equal, round and reactive pupils present Extrem: Other: Left lower extremity erythema edema and tenderness to palpation only sparing the upper thigh. Pedal pulses intact. Golfball size clear filled blister on the plantar surface of left foot. Nontender. 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 Objective Data Vital Signs Vital Signs: Vital Signs - 24 hr 09/06/24 18:51 09/07/24 01:18 09/07/24 04:43 Temperature 98.0 F 97.9 F Pulse Rate 98 84 65 Respiratory Rate 13 14 16 Blood Pressure 107/91 H 120/56 L 95/50 L Pulse Oximetry 98 100 98 Oxygen Delivery Room Air 09/07/24 02:49 09/07/24 02:50 09/07/24 03:00 Temperature Pulse Rate Respiratory Rate Blood Pressure 116/56 L Pulse Oximetry 98 97 96 Oxygen Delivery 09/07/24 03:01 09/07/24 03:15 09/07/24 03:16 Temperature Pulse Rate Respiratory Rate Blood Pressure 99/51 L 101/50 L Pulse Oximetry 96 94 95 Oxygen Delivery 09/07/24 03:30 09/07/24 03:31 09/07/24 03:47 Temperature Pulse Rate Respiratory Rate Blood Pressure 100/51 L 126/69 Pulse Oximetry 95 95 98 Oxygen Delivery 09/07/24 03:48 09/07/24 04:00 09/07/24 04:01 Temperature Pulse Rate Respiratory Rate Blood Pressure 72/59 L Pulse Oximetry 97 97 96 Oxygen Delivery 09/07/24 04:04 09/07/24 04:15 09/07/24 04:16 Temperature Pulse Rate Respiratory Rate Blood Pressure 99/68 L 100/48 L Pulse Oximetry 94 96 95 Oxygen Delivery 09/07/24 04:30 09/07/24 04:31 09/07/24 05:47 Temperature 97.9 F Pulse Rate 75 Respiratory Rate 18 Blood Pressure 95/50 L 100/75 Pulse Oximetry 95 95 98 Oxygen Delivery Intake/Output Intake/Output: Intake & Output 09/04/24 09/05/24 09/06/24 09/07/24 23:59 23:59 23:59 23:59 Intake Total 120 Balance 120 Meds/Results Medications: Active Medications Generic Name Dose Route Start Last Admin Trade Name Freq PRN Reason Stop Dose Admin Dextrose 12.5 gm 09/07/24 05:22 Dextrose 50% 25 Gm/50 Ml Syringe IV PUSH PRN PRN Hypoglycemia Protocol Glucose 15 gm 09/07/24 05:22 Glucose Oral Gel 15 Gm Of Glucse In 37.5 Gm Tube PO PRN PRN Hypoglycemia Protocol Vancomycin HCl 1,000 mg in 250 mls @ 250 mls/hr 09/07/24 05:00 09/07/24 06:28 Vancomycin 1,000 Mg/Ns 250 Ml IVPB 250 mls/hr Q24H BERNIE Administration Dextrose 1,000 mls @ 100 mls/hr 09/07/24 05:22 Dextrose 5% 1,000 Ml IVPB PRN PRN Hypoglycemia Protocol Insulin Aspart 2 - 5 units 09/07/24 08:00 Insulin Aspart (*Bkc) 100 Units/Ml SUB-Q TIDWM BERNIE Protocol Insulin Aspart 1 - 2 units 09/07/24 21:00 Insulin Aspart (*Bkc) 100 Units/Ml SUB-Q [facility] Protocol Morphine Sulfate 2 mg 09/07/24 05:23 Morphine Sulfate (*Crx) 2 Mg/Ml Inj IV PUSH Q4H PRN Pain Rated 7-10 Radiology Results: ITS Impressions Lower Extremity CT 09/07/24 07:31 IMPRESSION: 1. No evidence of osteomyelitis. 2. Polyarticular osteoarthritis. Labs Labs: Laboratory Results - last 24 hr 09/06/24 09/06/24 09/06/24 00:10 22:57 22:59 WBC 7.5 RBC 3.68 L Hgb 11.2 L Hct 35.4 L MCV 96.2 MCH 30.4 MCHC 31.6 L RDW 15.6 H Plt Count 162 MPV 10.3 Immature Gran % (Auto) 0.1 Neut % (Auto) 65.7 Lymph % (Auto) 20.2 [place] % (Auto) 10.5 H Eos % (Auto) 3.2 Baso % (Auto) 0.3 Lymph # (Auto) 1.52 [place] # (Auto) 0.8 H Eos # (Auto) 0.2 Baso # (Auto) 0.0 Abs Immat Gran (auto) 0.01 Absolute Neuts (auto) 4.9 Absolute Nucleated RBC 0.000 Nucleated RBC % 0.0 ESR 105 H PT 13.4 INR 1.0 APTT 32.9 D-Dimer 0.60 H Sodium Cancelled Potassium Chloride Carbon Dioxide Anion Gap BUN Creatinine Estim Creat Clear Calc Estimated GFR Glucose Lactic Acid 1.1 Calcium Magnesium Iron TIBC % Saturation Ferritin Total Bilirubin AST ALT Alkaline Phosphatase C-Reactive Protein Total Protein Albumin Vitamin B12 Folate 09/06/24 09/06/24 09/06/24 22:59 22:59 22:59 WBC RBC Hgb Hct MCV MCH MCHC RDW Plt Count MPV Immature Gran % (Auto) Neut % (Auto) Lymph % (Auto) [place] % (Auto) Eos % (Auto) Baso % (Auto) Lymph # (Auto) [place] # (Auto) Eos # (Auto) Baso # (Auto) Abs Immat Gran (auto) Absolute Neuts (auto) Absolute Nucleated RBC Nucleated RBC % ESR PT INR APTT D-Dimer Sodium 138 Potassium Cancelled 4.6 Chloride Cancelled 102 Carbon Dioxide Cancelled Anion Gap BUN Creatinine Estim Creat Clear Calc Estimated GFR Glucose Lactic Acid Calcium Magnesium Iron TIBC % Saturation Ferritin Total Bilirubin AST ALT Alkaline Phosphatase C-Reactive Protein Total Protein Albumin Vitamin B12 Folate 09/06/24 09/06/24 09/06/24 22:59 22:59 22:59 WBC RBC Hgb Hct MCV MCH MCHC RDW Plt Count MPV Immature Gran % (Auto) Neut % (Auto) Lymph % (Auto) [place] % (Auto) Eos % (Auto) Baso % (Auto) Lymph # (Auto) [place] # (Auto) Eos # (Auto) Baso # (Auto) Abs Immat Gran (auto) Absolute Neuts (auto) Absolute Nucleated RBC Nucleated RBC % ESR PT INR APTT D-Dimer Sodium Potassium Chloride Carbon Dioxide 26 Anion Gap Cancelled 10 BUN Cancelled 24 H Creatinine Cancelled Estim Creat Clear Calc Estimated GFR Glucose Lactic Acid Calcium Magnesium Iron TIBC % Saturation Ferritin Total Bilirubin AST ALT Alkaline Phosphatase C-Reactive Protein Total Protein Albumin Vitamin B12 Folate 09/06/24 09/06/24 09/06/24 22:59 22:59 22:59 WBC RBC Hgb Hct MCV MCH MCHC RDW Plt Count MPV Immature Gran % (Auto) Neut % (Auto) Lymph % (Auto) [place] % (Auto) Eos % (Auto) Baso % (Auto) Lymph # (Auto) [place] # (Auto) Eos # (Auto) Baso # (Auto) Abs Immat Gran (auto) Absolute Neuts (auto) Absolute Nucleated RBC Nucleated RBC % ESR PT INR APTT D-Dimer Sodium Potassium Chloride Carbon Dioxide Anion Gap BUN Creatinine 0.50 L Estim Creat Clear Calc Cancelled 52 Estimated GFR Cancelled > 60 Glucose Cancelled Lactic Acid Calcium Magnesium Iron TIBC % Saturation Ferritin Total Bilirubin AST ALT Alkaline Phosphatase C-Reactive Protein Total Protein Albumin Vitamin B12 Folate 09/06/24 09/06/24 09/07/24 22:59 22:59 05:54 WBC 7.6 RBC 3.46 L Hgb 10.3 L Hct 33.3 L MCV 96.2 MCH 29.8 MCHC 30.9 L RDW 15.6 H Plt Count 161 MPV 10.3 Immature Gran % (Auto) Neut % (Auto) Lymph % (Auto) [place] % (Auto) Eos % (Auto) Baso % (Auto) Lymph # (Auto) [place] # (Auto) Eos # (Auto) Baso # (Auto) Abs Immat Gran (auto) Absolute Neuts (auto) Absolute Nucleated RBC Nucleated RBC % ESR PT INR APTT D-Dimer Sodium 137 Potassium 4.9 Chloride 104 Carbon Dioxide 24 Anion Gap 9 BUN 20 H Creatinine 0.50 L Estim Creat Clear Calc 52 Estimated GFR > 60 Glucose 112 H 110 Lactic Acid Calcium Cancelled 8.9 8.6 Magnesium 2.1 Iron 14 L TIBC 299 % Saturation 5 L Ferritin 78.80 Total Bilirubin 0.8 AST 39 H ALT 31 Alkaline Phosphatase 68 C-Reactive Protein 7.2 H Total Protein 7.0 Albumin 3.5 Vitamin B12 388.0 Folate 17.2 Quality VTE Prophylaxis VTE prophylaxis: mechanical ordered
[2024-09-07] MEDS: lisinopriL 10 MG TABLET PO (10:10)
[2024-09-07] MEDS: ASPIRIN 81 MG ENTERIC TABLET PO (10:10)
[2024-09-07] MEDS: ATORVASTATIN 40 MG TABLET PO (10:11)
[2024-09-07] MEDS: amLODIPine BESYLATE 5 MG TABLET PO (10:11)
[2024-09-07] MEDS: ACETAMINOPHEN 325 MG TABLET 650 MG PO ×2 (10:51→16:21)
[2024-09-07] MEDS: PHENOL/SOD PHENO SPRAY CHERRY (*BKC) 1 SPRAY MUCOUS MEM (10:52)
--- NOTE | 2024-09-07 18:38 | PC.NURSE ---
On 09/07/24, the WATER SAFETY TEACHER, Perla Thomas, provided care and completed [facility] this patient. I have reviewed the WATER SAFETY TEACHER's documentation and agree with the findings.
[2024-09-08 04:49] VITALS: BP 134/57; PULSE 86; RESP 16; TEMP 36.8; O2SAT 97
[2024-09-08] MEDS: VANCOMYCIN 1,000 MG/NS 250 ML 1,000 MG/250 ML BAG 250 MG IVPB (05:00)
[2024-09-08 06:36] LABS: Hematocrit 32.8 % (37.0-47.0); Hemoglobin 10.1 g/dL (12.0-15.0); Mean Corpuscular HGB Conc 30.8 g/dl (32-36); Mean Corpuscular Hemoglobin 29.9 pg (26-34); Mean Platelet Volume 9.9 fl (7.4-10.4); Platelet Count Result 172 k/mm3 (150-375); Red Blood Count 3.38 M/mm3 (4.2-5.4); Red Cell Distribution Width 15.4 % (11.5-14.5); White Blood Count 5.8 K/mm3 (4.5-10.0)
[2024-09-08 06:47] LABS: Anion Gap 7 mmol/L (4-12); Blood Urea Nitrogen 13 mg/dL (7-17); Calcium 8.6 mg/dL (8.4-10.2); Carbon Dioxide 26 mmol/L (22-30); Chloride 106 mmol/L (98-107); Estimated CRCL calculation 52 ml/min; Estimated Glomerular Filt Rate > 60; Glucose 123 mg/dL (65-110); Potassium 4.1 mmol/L (3.4-5.0); Sodium 139 mmol/L (137-145)
[2024-09-08] MEDS: FERROUS SULFATE DRIED 142 MG TABCR PO (08:36)
[2024-09-08] MEDS: ASPIRIN 81 MG ENTERIC TABLET PO (08:36)
[2024-09-08] MEDS: ACETAMINOPHEN 325 MG TABLET 650 MG PO ×2 (08:36→14:07)
[2024-09-08] MEDS: lisinopriL 10 MG TABLET PO (08:36)
[2024-09-08] MEDS: ATORVASTATIN 40 MG TABLET PO (08:37)
[2024-09-08 08:46] VITALS: BP 119/51; PULSE 74; O2SAT 96
--- NOTE | 2024-09-08 09:28 | P.PNIM_ITS ---
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 In any case, have continued to advised the patient follow-up with Dermatology for longer-term management. -Consult Wound Care. Being that the blisters appeared migratory in fashion on the hands and feet did not believe this is related to chronic venous insufficiency. 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 It is not present on the left lower extremity, the patient does report there is mild swelling off and on of the left lower extremity. Wonder if this has to do with her prior CVA with left-sided residual paresthesias. Check ultrasound venous Doppler of left lower extremity to rule out DVT. Received vancomycin and Zosyn in the ER. Continue vancomycin. - BC obtained in ED- follow - She is having a difficult time walking due to the large blister on her left foot- will consult Physical therapy. Her cellulitis is likely secondary to manipulation of a previous blister on her left foot. If the patient so wishes then drainage of this large left foot blister could be performed with the consideration that it may introduce another nidus of infection, however it may be prudent do this while she is receiving IV antibiotics here at the hospital. CT lower extremities completed: IMPRESSION: 1. No evidence of osteomyelitis. 2. Polyarticular osteoarthritis 09/08- BC prelim- negative so far erythema slightly improved, pt reports keg feels less tight (2) Blister of skin with infection: Status: Acute Assessment and Plan: see above (3) Hypertension: Code(s): I10 - Essential (primary) hypertension Status: Acute Assessment and Plan: on home malodipine 5 mg daily, lisinopril 10 mg daily (4) CVA (cerebral vascular accident): Code(s): I63.9 - Cerebral infarction, unspecified Status: Acute Assessment and Plan: -continue asa, statin (5) Diabetes: Code(s): E11.9 - Type 2 diabetes mellitus without complications Status: Acute Assessment and Plan: will hold home metfromin 500 mg daily Accu-Checks a.c. HS with low-dose insulin sliding scale. - hypoglycemia protocol Plan 84-year-old female with a history of ujh-yqyoefl-nqlbowyap diabetes mellitus, CVA with residual left-sided paresthesias, hypertension, chronic venous stasis/chronic insufficiency. She is chaperoned by her daughter. The patient lives with her . The story is as follows: Approximately a month ago the patient began to develop blisters on the hands and feet. At 1 point she was in accurately diagnosed with shingles. She was given valacyclovir. She was told to see a claims assistant but could not get in until January. She has been able to see a billing collections specialist at [facility] in the past few weeks at which point a biopsy was done on the medial side of her right lower extremity which the patient self reports resulted as cellulitis. Patient has had difficulty walking due to the biggest blister being on the sole of her left foot. She does not rep ort itching but does report pain sometimes at rest and with pressure. The blisters are filled with clear fluid. They do not slough off easily. This is the 1st time this has happened. No family history of blisters. Denies abdominal pain nausea vomiting chest pain shortness of breath change in vision or fever. She denies any bloody stool denies diarrhea. Denies blisters on her mucous membranes. At the time of evaluation at [facility] ER on 09/07/2024 the patient has 1 blister on her left foot plantar surface as aforementioned. The other blisters on her hands and right foot have healed. She is primarily presenting because since her billing collections specialist popped a blister on her left foot about a week ago she has developed increasing swelling and redness and pain of the entire left leg. Hemoglobin 11.2. Check iron studies and ferritin and folate and B12. SCD on right leg. Saline lock IV. Heart healthy and diabetic diet. Patient wishes to be full code. Time Spent With Patient Time with patient: Greater than 35 minutes Subjective Date/time seen: 09/08/24 09:28 Interval history: Narrative retrieved from h/p: 84-year-old female with a history of cem-envetbc-xjwvgdfqt diabetes mellitus, CVA with residual left-sided paresthesias, hypertension, chronic venous stasis/chronic insufficiency. She is chaperoned by her daughter. The patient lives with her . The story is as follows: Approximately a month ago the patient began to develop blisters on the hands and feet. At 1 point she was in accurately diagnosed with shingles. She was given valacyclovir. She was told to see a claims assistant but could not get in until January. She has been able to see a billing collections specialist at [facility] in the past few weeks at which point a biopsy was done on the medial side of her right lower extremity which the patient self reports resulted as cellulitis. Patient has had difficulty walking due to the biggest blister being on the sole of her left foot. She does not report itching but does report pain sometimes at rest and with pressure. The blisters are filled with clear fluid. They do not slough off easily. This is the 1st time this has happened. No family history of blisters. Denies abdominal pain nausea vomiting chest pain shortness of breath change in vision or fever. She denies any bloody stool denies diarrhea. Denies blisters on her mucous membranes. At the time of evaluation at [facility] ER on 09/07/2024 the patient has 1 blister on her left foot plantar surface as aforementioned. The other blisters on her hands and right foot have healed. She is primarily presenting because since her billing collections specialist popped a blister on her left foot about a week ago she has developed increasing swelling and redness and pain of the entire left leg. ER evaluation demonstrates erythema and edema of the bilateral lower extremity only sparing the upper thigh. There is no purulence or open wounds. Her leg is warm to touch and tender to palpation. It is significantly edematous. There is a large golf ball sized clear fluid-filled blister on the middle of her plantar surface of left foot. It is nontender. There is no purulent drainage. Pedal pulses are intact. Vitals largely acceptable. Hemoglobin 11.2. CRP elevated at 7. She was given Zosyn and vancomycin. Admitted on 09/07/2024 under the hospitalist service for left lower extremity cellulitis nonpurulent. 09/07 pt is seen and examined. She is calm, pleasant, reports slight headaches- other branch feels fine. Wound care consult is ordered but not available over the weekend. She reports no n/v/d. 09/08- reports improvement in pain- still hurts somewhat but overall better. leg feels less tight. Review of Systems Review of Systems: All systems reviewed & are unremarkable except as noted in HPI and below (Subjective) Constitutional: Constitutional: Denies body ache(s) and Denies chills Cardiovascular: Cardiovascular: Denies chest pain Respiratory: Respiratory: Denies cough Gastrointestinal: Gastrointestinal: Denies abdominal pain Genitourinary: Genitourinary: Denies hematuria Integumentary/Breasts: Skin/Breast: Reports rash and Reports skin pain Exam Const: General: comfortable and no acute distress Other: A&O x3. Chaperoned by her daughter. HENMT: Mouth: Yes moist mucous membranes Other: No lesions Eyes: Sclera: sclerae normal Pupils: Equal, round and reactive pupils present EOM: EOMs intact bilaterally Other: Conjunctiva intact. No lesions. Neck: Neck: supple Resp: Effort & Inspection: normal respiratory effort Auscultation: clear to auscultation bilaterally Cardio: Rate: regular rate Rhythm: regular rhythm Heart sounds: no gallops, no murmurs and no rubs GI: Inspection: non-distended : General: Yes bladder normal to palpation Bimanual exam- vagina & uterus: bladder normal to palpation Neuro: Cranial nerves: Yes Equal, round and reactive pupils present Extrem: Other: Left lower extremity erythema edema and tenderness to palpation only sparing the upper thigh. Pedal pulses intact. Golfball size clear filled blister on the plantar surface of left foot. Nontender. 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 erythema is improved slightly to middle-knee and inner thigh Objective Data Vital Signs Vital Signs: Vital Signs - 24 hr 09/07/24 14:00 09/07/24 10:10 09/07/24 20:05 Temperature 97.9 F 98.1 F Pulse Rate 87 83 Respiratory Rate 20 18 Blood Pressure 106/49 L 115/60 Pulse Oximetry 95 97 Oxygen Delivery Room Air 09/07/24 20:00 09/08/24 04:49 09/08/24 08:46 Temperature 98.2 F Pulse Rate 86 74 Respiratory Rate 16 Blood Pressure 134/57 L 119/51 L Pulse Oximetry 97 96 Oxygen Delivery Room Air Intake/Output Intake/Output: Intake & Output 09/05/24 09/06/24 09/07/24 09/08/24 23:59 23:59 23:59 23:59 Intake Total 970 710 Balance 970 710 Meds/Results Medications: Active Medications Generic Name Dose Route Start Last Admin Trade Name Freq PRN Reason Stop Dose Admin Acetaminophen 650 mg 09/07/24 10:22 09/08/24 08:36 Acetaminophen 325 Mg Tablet PO 650 mg Q6H PRN Administration Mild Pain (1-3) or Fever Amlodipine Besylate 5 mg 09/07/24 09:00 09/07/24 10:11 Amlodipine Besylate 5 Mg Tablet PO 5 mg DAILY BERNIE Administration Aspirin 81 mg 09/07/24 09:00 09/08/24 08:36 Aspirin 81 Mg Enteric Tablet PO 81 mg QAM BERNIE Administration Atorvastatin Calcium 40 mg 09/07/24 09:00 09/08/24 08:37 Atorvastatin 40 Mg Tablet PO 40 mg DAILY BERNIE Administration Dextrose 12.5 gm 09/07/24 05:22 Dextrose 50% 25 Gm/50 Ml Syringe IV PUSH PRN PRN Hypoglycemia Protocol Ferrous Sulfate 142 mg 09/08/24 08:00 09/08/24 08:36 Ferrous Sulfate Dried 142 Mg Tabcr PO 142 mg DAILY@0800 BERNIE Administration Glucose 15 gm 09/07/24 05:22 Glucose Oral Gel 15 Gm Of Glucse In 37.5 Gm Tube PO PRN PRN Hypoglycemia Protocol Vancomycin HCl 1,000 mg in 250 mls @ 250 mls/hr 09/07/24 05:00 09/08/24 06:00 Vancomycin 1,000 Mg/Ns 250 Ml IVPB Infused Q24H BERNIE Infusion Dextrose 1,000 mls @ 100 mls/hr 09/07/24 05:22 Dextrose 5% 1,000 Ml IVPB PRN PRN Hypoglycemia Protocol Lisinopril 10 mg 09/07/24 09:00 09/08/24 08:36 Lisinopril 10 Mg Tablet PO 10 mg DAILY BERNIE Administration Morphine Sulfate 2 mg 09/07/24 05:23 Morphine Sulfate (*Crx) 2 Mg/Ml Inj IV PUSH Q4H PRN Pain Rated 7-10 Phenol 1 spray 09/07/24 10:23 09/07/24 10:52 Phenol/Sod Pheno [place] Oropeza (*Bkc) MUCOUS MEM 1 spray PRN PRN Administration Sore Throat Radiology Results: ITS Impressions Lower Extremity CT 09/07/24 07:31 IMPRESSION: 1. No evidence of osteomyelitis. 2. Polyarticular osteoarthritis. Venous Doppler Study 09/07/24 10:58 IMPRESSION: 1. No deep venous thrombosis. Labs Labs: Laboratory Results - last 24 hr 09/08/24 06:22 WBC 5.8 RBC 3.38 L Hgb 10.1 L Hct 32.8 L MCV 97.0 MCH 29.9 MCHC 30.8 L RDW 15.4 H Plt Count 172 MPV 9.9 Sodium 139 Potassium 4.1 Chloride 106 Carbon Dioxide 26 Anion Gap 7 BUN 13 D Creatinine 0.50 L Estim Creat Clear Calc 52 Estimated GFR > 60 Glucose 123 H Calcium 8.6 Quality VTE Prophylaxis VTE prophylaxis: mechanical ordered
[2024-09-08 13:32] VITALS: BP 116/61; PULSE 78; RESP 18; TEMP 36.5; O2SAT 96
[2024-09-08] MEDS: amLODIPine BESYLATE 5 MG TABLET PO (14:08)
--- NOTE | 2024-09-08 17:37 | PC.NURSE ---
On 09/08/24, the CUSTOMER PROJECT MANAGER, Perla Thomas, provided care and completed [employer] documentation on this patient. I have reviewed the CUSTOMER PROJECT MANAGER's documentation and agree with the findings.
[2024-09-08 20:25] VITALS: BP 124/50; PULSE 76; RESP 17; TEMP 36.4; O2SAT 96
[2024-09-09] MEDS: ACETAMINOPHEN 325 MG TABLET 650 MG PO ×2 (01:20→16:36)
[2024-09-09] MEDS: VANCOMYCIN 1,000 MG/NS 250 ML 1,000 MG/250 ML BAG 250 MG IVPB (04:12)
[2024-09-09 05:17] VITALS: BP 120/51; PULSE 74; RESP 17; TEMP 36.7; O2SAT 96
--- NOTE | 2024-09-09 07:27 | P.PNIM_ITS ---
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 In any case, have continued to advised the patient follow-up with Dermatology for longer-term management. -Consult Wound Care. Being that the blisters appeared migratory in fashion on the hands and feet did not believe this is related to chronic venous insufficiency. 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 It is not present on the left lower extremity, the patient does report there is mild swelling off and on of the left lower extremity. Wonder if this has to do with her prior CVA with left-sided residual paresthesias. Check ultrasound venous Doppler of left lower extremity to rule out DVT. Received vancomycin and Zosyn in the ER. Continue vancomycin. - BC obtained in ED- follow - She is having a difficult time walking due to the large blister on her left foot- will consult Physical therapy. Her cellulitis is likely secondary to manipulation of a previous blister on her left foot. If the patient so wishes then drainage of this large left foot blister could be performed with the consideration that it may introduce another nidus of infection, however it may be prudent do this while she is receiving IV antibiotics here at the hospital. CT lower extremities completed: IMPRESSION: 1. No evidence of osteomyelitis. 2. Polyarticular osteoarthritis 09/08- BC prelim- negative so far erythema slightly improved, pt reports leg feels less tight 09/09- will switch to PO antibiotics- anticipate discharge tomorrow if stable overnight (2) Blister of skin with infection: Status: Acute Assessment and Plan: see above (3) Hypertension: Code(s): I10 - Essential (primary) hypertension Status: Acute Assessment and Plan: on home amlodipine 5 mg daily, lisinopril 10 mg daily (4) CVA (cerebral vascular accident): Code(s): I63.9 - Cerebral infarction, unspecified Status: Acute Assessment and Plan: -continue asa, statin (5) Diabetes: Code(s): E11.9 - Type 2 diabetes mellitus without complications Status: Acute Assessment and Plan: will hold home metfromin 500 mg daily Accu-Checks a.c. HS with low-dose insulin sliding scale. - hypoglycemia protocol Plan 84-year-old female with a history of ene-qalavrk-iyjehxpgv diabetes mellitus, CVA with residual left-sided paresthesias, hypertension, chronic venous stasis/chronic insufficiency. She is chaperoned by her daughter. The patient lives with her . The story is as follows: Approximately a month ago the patient began to develop blisters on the hands and feet. At 1 point she was in accurately diagnosed with shingles. She was given valacyclovir. She was told to see a production machine shop supervisor but could not get in until January. She has been able to see a air intelligence specialist at [facility] in the past few weeks at which point a biopsy was done on the medial side of her right lower extremity which the patient self reports resulted as cellulitis. Patient has had difficulty walking due to the biggest blister being on the sole of her left foot. She does not report itching but does report pain sometimes at rest and with pressure. The blisters are filled with clear fluid. They do not slough off easily. This is the 1st time this has happened. No family history of blisters. Denies abdominal pain nausea vomiting chest pain shortness of breath change in vision or fever. She denies any bloody stool denies diarrhea. Denies blisters on her mucous membranes. At the time of evaluation at [facility] ER on 09/07/2024 the patient has 1 blister on her left foot plantar surface as aforementioned. The other blisters on her hands and right foot have healed. She is primarily presenting because since her air intelligence specialist popped a blister on her left foot about a week ago she has developed increasing swelling and redness and pain of the entire left leg. Hemoglobin 11.2. Check iron studies and ferritin and folate and B12. SCD on right leg. Saline lock IV. Heart healthy and diabetic diet. Patient wishes to be full code. Time Spent With Patient Time with patient: Greater than 35 minutes Subjective Date/time seen: 09/09/24 07:27 Interval history: Narrative retrieved from h/p: 84-year-old female with a history of atx-clyeyiq-qehgpykua diabetes mellitus, CVA with residual left-sided paresthesias, hypertension, chronic venous stasis/chronic insufficiency. She is chaperoned by her daughter. The patient lives with her . The story is as follows: Approximately a month ago the patient began to develop blisters on the hands and feet. At 1 point she was in accurately diagnosed with shingles. She was given valacyclovir. She was told to see a production machine shop supervisor but could not get in until January. She has been able to see a air intelligence specialist at [facility] in the past few weeks at which point a biopsy was done on the medial side of her right lower extremity which the patient self reports resulted as cellulitis. Patient has had difficulty walking due to the biggest blister being on the sole of her left foot. She does not report itching but does report pain sometimes at rest and with pressure. The blisters are filled with clear fluid. They do not slough off easily. This is the 1st time this has happened. No family history of blisters. Denies abdominal pain nausea vomiting chest pain shortness of breath change in vision or fever. She denies any bloody stool denies diarrhea. Denies blisters on her mucous membranes. At the time of evaluation at [facility] ER on 09/07/2024 the patient has 1 blister on her left foot plantar surface as aforementioned. The other blisters on her hands and right foot have healed. She is primarily presenting because since her air intelligence specialist popped a blister on her left foot about a week ago she has developed increasing swelling and redness and pain of the entire left leg. ER evaluation demonstrates erythema and edema of the bilateral lower extremity only sparing the upper thigh. There is no purulence or open wounds. Her leg is warm to touch and tender to palpation. It is significantly edematous. There is a large golf ball sized clear fluid-filled blister on the middle of her plantar surface of left foot. It is nontender. There is no purulent drainage. Pedal pulses are intact. Vitals largely acceptable. Hemoglobin 11.2. CRP elevated at 7. She was given Zosyn and vancomycin. Admitted on 09/07/2024 under the hospitalist service for left lower extremity cellulitis nonpurulent. 09/07 pt is seen and examined. She is calm, pleasant, reports slight headaches- other branch feels fine. Wound care consult is ordered but not available over the weekend. She reports no n/v/d. 09/08- reports improvement in pain- still hurts somewhat but overall better. leg feels less tight. 09/09- pt is seen and examined- no acute events overnight. Woundcare is to see her today. Pain is improved, erythema improved slightly as well Review of Systems Review of Systems: All systems reviewed & are unremarkable except as noted in HPI and below (Subjective) Constitutional: Constitutional: Denies body ache(s) and Denies chills Cardiovascular: Cardiovascular: Denies chest pain Respiratory: Respiratory: Denies cough Gastrointestinal: Gastrointestinal: Denies abdominal pain Genitourinary: Genitourinary: Denies hematuria Integumentary/Breasts: Skin/Breast: Reports rash and Reports skin pain Exam Const: General: comfortable and no acute distress Other: A&O x3. Chaperoned by her daughter. HENMT: Mouth: Yes moist mucous membranes Other: No lesions Eyes: Sclera: sclerae normal Pupils: Equal, round and reactive pupils present EOM: EOMs intact bilaterally Other: Conjunctiva intact. No lesions. Neck: Neck: supple Resp: Effort & Inspection: normal respiratory effort Auscultation: clear to auscultation bilaterally Cardio: Rate: regular rate Rhythm: regular rhythm Heart sounds: no gallops, no murmurs and no rubs GI: Inspection: non-distended : General: Yes bladder normal to palpation Bimanual exam- vagina & uterus: bladder normal to palpation Neuro: Cranial nerves: Yes Equal, round and reactive pupils present Extrem: Other: Left lower extremity erythema edema and tenderness to palpation only sparing the upper thigh. Pedal pulses intact. Golfball size clear filled blister on the plantar surface of left foot. Nontender. 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 erythema is improved slightly to middle-knee and inner thigh Objective Data Vital Signs Vital Signs: Vital Signs - 24 hr 09/08/24 08:46 09/08/24 08:35 09/08/24 13:32 Temperature 97.7 F Pulse Rate 74 78 Respiratory Rate 18 Blood Pressure 119/51 L 116/61 Pulse Oximetry 96 96 Oxygen Delivery Room Air 09/08/24 20:25 09/08/24 20:00 09/09/24 05:17 Temperature 97.6 F 98.1 F Pulse Rate 76 74 Respiratory Rate 17 17 Blood Pressure 124/50 L 120/51 L Pulse Oximetry 96 96 Oxygen Delivery Room Air Intake/Output Intake/Output: Intake & Output 09/06/24 09/07/24 09/08/24 09/09/24 23:59 23:59 23:59 23:59 Intake Total 970 1190 500 Balance 970 1190 500 Meds/Results Medications: Active Medications Generic Name Dose Route Start Last Admin Trade Name Christianq PRN Reason Stop Dose Admin Acetaminophen 650 mg 09/07/24 10:22 09/09/24 01:20 Acetaminophen 325 Mg Tablet PO 650 mg Q6H PRN Administration Mild Pain (1-3) or Fever Amlodipine Besylate 5 mg 09/07/24 09:00 09/08/24 14:08 Amlodipine Besylate 5 Mg Tablet PO 5 mg DAILY BERNIE Administration Aspirin 81 mg 09/07/24 09:00 09/08/24 08:36 Aspirin 81 Mg Enteric Tablet PO 81 mg QAM BERNIE Administration Atorvastatin Calcium 40 mg 09/07/24 09:00 09/08/24 08:37 Atorvastatin 40 Mg Tablet PO 40 mg DAILY BERNIE Administration Dextrose 12.5 gm 09/07/24 05:22 Dextrose 50% 25 Gm/50 Ml Syringe IV PUSH PRN PRN Hypoglycemia Protocol Ferrous Sulfate 142 mg 09/08/24 08:00 09/08/24 08:36 Ferrous Sulfate Dried 142 Mg Tabcr PO 142 mg DAILY@0800 BERNIE Administration Glucose 15 gm 09/07/24 05:22 Glucose Oral Gel 15 Gm Of Glucse In 37.5 Gm Tube PO PRN PRN Hypoglycemia Protocol Vancomycin HCl 1,000 mg in 250 mls @ 250 mls/hr 09/07/24 05:00 09/09/24 05:42 Vancomycin 1,000 Mg/Ns 250 Ml IVPB Infused Q24H BERNIE Infusion Dextrose 1,000 mls @ 100 mls/hr 09/07/24 05:22 Dextrose 5% 1,000 Ml IVPB PRN PRN Hypoglycemia Protocol Lisinopril 10 mg 09/07/24 09:00 09/08/24 08:36 Lisinopril 10 Mg Tablet PO 10 mg DAILY EBRNIE Administration Morphine Sulfate 2 mg 09/07/24 05:23 Morphine Sulfate (*Crx) 2 Mg/Ml Inj IV PUSH Q4H PRN Pain Rated 7-10 Phenol 1 spray 09/07/24 10:23 09/07/24 10:52 Phenol/Sod Pheno [place] Oropeza (*Bkc) MUCOUS MEM 1 spray PRN PRN Administration Sore Throat Radiology Results: ITS Impressions Lower Extremity CT 09/07/24 07:31 IMPRESSION: 1. No evidence of osteomyelitis. 2. Polyarticular osteoarthritis. Venous Doppler Study 09/07/24 10:58 IMPRESSION: 1. No deep venous thrombosis. Quality VTE Prophylaxis VTE prophylaxis: mechanical ordered
[2024-09-09 07:33] LABS: Estimated CRCL calculation 52 ml/min; Estimated Glomerular Filt Rate > 60
[2024-09-09 08:00] VITALS: BP 125/64; PULSE 73; RESP 16; TEMP 36.3; O2SAT 95
[2024-09-09] MEDS: amLODIPine BESYLATE 5 MG TABLET PO (08:30)
[2024-09-09] MEDS: FERROUS SULFATE DRIED 142 MG TABCR PO (08:30)
[2024-09-09] MEDS: lisinopriL 10 MG TABLET PO (08:30)
[2024-09-09] MEDS: ASPIRIN 81 MG ENTERIC TABLET PO (08:31)
[2024-09-09] MEDS: ATORVASTATIN 40 MG TABLET PO (08:31)
--- NOTE | 2024-09-09 10:22 | PC.NURSE ---
On 09/09/24, the student, [Solo Johnson ], provided care and completed [facility] documentation on this patient. I have reviewed the student's documentation and agree with the findings.
--- NOTE | 2024-09-09 12:33 | PC.NURSE ---
On 09/09/24, the student, [Solo Johnson ], provided care and completed [facility] documentation on this patient. I have reviewed the student's documentation and agree with the findings.
[2024-09-09 14:00] VITALS: BP 105/43; PULSE 59; RESP 19; TEMP 36.3; O2SAT 96
[2024-09-09 20:21] VITALS: BP 120/50; PULSE 81; RESP 17; TEMP 36.6; O2SAT 93
[2024-09-09] MEDS: LINEZOLID 600 MG TABLET PO (20:49)
[2024-09-10 04:54] VITALS: BP 108/57; PULSE 74; RESP 18; TEMP 36.7; O2SAT 94
[2024-09-10 07:29] LABS: Anion Gap 9 mmol/L (4-12); Blood Urea Nitrogen 17 mg/dL (7-17); Calcium 8.9 mg/dL (8.4-10.2); Carbon Dioxide 25 mmol/L (22-30); Chloride 107 mmol/L (98-107); Estimated CRCL calculation 52 ml/min; Estimated Glomerular Filt Rate > 60; Glucose 123 mg/dL (65-110); Potassium 5.2 mmol/L (3.4-5.0); Sodium 141 mmol/L (137-145)
[2024-09-10] MEDS: ACETAMINOPHEN 325 MG TABLET 650 MG PO (08:48)
[2024-09-10] MEDS: ATORVASTATIN 40 MG TABLET PO (08:49)
[2024-09-10] MEDS: lisinopriL 10 MG TABLET PO (08:49)
[2024-09-10] MEDS: LINEZOLID 600 MG TABLET PO (08:49)
[2024-09-10] MEDS: FERROUS SULFATE DRIED 142 MG TABCR PO (08:49)
[2024-09-10] MEDS: ASPIRIN 81 MG ENTERIC TABLET PO (08:49)
[2024-09-10] MEDS: amLODIPine BESYLATE 5 MG TABLET PO (08:49)
--- NOTE | 2024-09-10 12:27 | PM.DS ---
DS: Admitting Diagnosis Discharge Date 09/10 Admitting Diagnosis cellulitis DS: Discharge Diagnosis Discharge Diagnosis (1) Cellulitis of leg, left: Code(s): L03.116 - Cellulitis of left lower limb Status: Acute (2) Blister of skin with infection: Status: Acute (3) Hypertension: Code(s): I10 - Essential (primary) hypertension Status: Acute (4) CVA (cerebral vascular accident): Code(s): I63.9 - Cerebral infarction, unspecified Status: Acute (5) Diabetes: Code(s): E11.9 - Type 2 diabetes mellitus without complications Status: Acute DS: Summary Hospital Course Hospital Course: 84-year-old female with a history of aec-zugbius-rjuhukasl diabetes mellitus, CVA with residual left-sided paresthesias, hypertension, chronic venous stasis/chronic insufficiency. She is chaperoned by her daughter. The patient lives with her . The story is as follows: Approximately a month ago the patient began to develop blisters on the hands and feet. At 1 point she was in accurately diagnosed with shingles. She was given valacyclovir. She was told to see a batch weigher but could not get in until January. She has been able to see a senior marketing specialist at [facility] in the past few weeks at which point a biopsy was done on the medial side of her right lower extremity which the patient self reports resulted as cellulitis. BC collected- negative - she was started on vanc - then downgraded to linezolid on 09/09. she had been taking the med without any side effects. Her erythema greatly improved with almost complete resolution to middle area with some redness still left to lt upper thigh ad ankle. She was instructed to take antibiotics- Wound care saw her- chronic venous insufficiency- blister care was provided- she was educated about skin care. She was encouraged to f/u with [facility] on her biopsy and keep an whitney with dermatology. Status at Discharge Functional status at discharge: uses cane/walker Overall status at discharge: patient is progressing back to baseline Time Spent with Patient Time attestation: Total time spent providing and/or coordinating discharge services: Exam Narrative: erythema is a lot better with almost complete clearing to middle- knee area. Const: General: comfortable and no acute distress Other: A&O x3. Chaperoned by her daughter. HENMT: Mouth: Yes moist mucous membranes Other: No lesions Eyes: Sclera: sclerae normal Pupils: Equal, round and reactive pupils present EOM: EOMs intact bilaterally Other: Conjunctiva intact. No lesions. Neck: Neck: supple Resp: Effort & Inspection: normal respiratory effort Auscultation: clear to auscultation bilaterally Cardio: Rate: regular rate Rhythm: regular rhythm Heart sounds: no gallops, no murmurs and no rubs GI: Inspection: non-distended : General: Yes bladder normal to palpation Bimanual exam- vagina & uterus: bladder normal to palpation Neuro: Cranial nerves: Yes Equal, round and reactive pupils present Extrem: Other: Pedal pulses intact. Nontender. 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 erythema is improved with just some left to ankle and upper thigh DS: Data Data Completed and Pending Labs on day of discharge: Labs from last 24 hours 09/10/24 07:12 Sodium 141 Potassium 5.2 H Chloride 107 Carbon Dioxide 25 Anion Gap 9 BUN 17 Creatinine 0.50 L Estim Creat Clear Calc 52 Estimated GFR > 60 Glucose 123 H Calcium 8.9 Preliminary micro results at discharge 09/06/24 23:35 Blood Culture - Preliminary Blood 09/06/24 23:35 Blood Culture - Preliminary Blood Discharge Plan Discharge Attending physician on discharge: Kristian Mcneill Discharging Clinician: Michelle Watts Patient Disposition: Home Health Service Activity: march shower Diet: as tolerated and heart healthy Wound Care Instructions: other - see discharge instructions Discharge Instructions: Per Care Coordination: [facility] ([phone]) will call to set up initial visit. You were admitted with skin cellulitis. We collected blood cultures which were negative. We started you on IV antibiotic-vancomycin and switched to oral one, Linezolid (Zyvox) 600 mg every 12 h on 09/09 at 9 pm. Please continue to take this antibiotic until 09/16 (last dose at 09/16 at 9 pm) Since you had seen senior marketing specialist at [facility] in the past few weeks ago and a biopsy was done - please follow up with them about results. Keep you batch weigher whitney in january and/or refer to your insurance to see if there is any derm offices that are able to get you in sooner. Please discuss with your PCP if workup for chronic venous insufficiency may be prudent and/or vascular referral is warranted. Based on wound consult note- Chronic venous insufficiency is present which could be a reason for blisters, skin thickening and discoloration. Meanwhile, keep the area clean and dry. Use scent free moisturizer/cream for skin- like plain Vaseline. Please follow up with PCP within 1-2 weeks to re assess your cellulitis. Your iron blood levels were a little low- so we started you on iron replacement- Slow FE- i sent a script to your pharmacy- if insurance does not cover it- please buy it over the counter and continue to take for at least couple of months- then your PCP will recheck your iron levels. Patient Instructions: Antibiotic Form Stand Alone Forms: General Discharge Information Follow-up/Referrals: Pedro Guzman MD [Primary Care Provider] - 1 Week Discharge Medications: New ferrous sulfate [Slow Release Iron] 142 mg (45 mg iron) Tablet Extended Release 142 mg PO DAILY@0800 Qty: 60 0RF linezolid 600 mg Tablet 600 mg PO Q12HR Qty: 13 0RF Rx Instructions: last dose 09/16 at 9 pm Continued Adult Low Dose Aspirin 81 mg 1 tab-cap PO DAILY amlodipine 5 mg tablet 5 mg PO DAILY Qty: 90 1RF metformin 500 mg tablet 500 mg PO DAILY Qty: 90 3RF atorvastatin 40 mg tablet 40 mg PO DAILY Qty: 90 3RF lisinopril 10 mg tablet 10 mg PO DAILY Qty: 90 3RF Date of admission: 09/08/24 13:31 Primary Care Provider: Pedro Guzman Admitting Provider: Malia Hudson Attending physician on admission: Malia Hudson Condition: Stable Quality VTE Prophylaxis VTE prophylaxis: mechanical ordered Hospitalist MIPS Heart Failure (Exclusion) Patient has history of Heart Transplant or Left Ventricular Assistive Device?: No IF YES, STOP HERE Heart Failure (Qualifier) Patient has current or prior documentation of LVEF less than or equal to 40%, or mod/servere depressed LVSF?: No IF NO, STOP HERE
== END 2024-09-10 14:40 | disposition home health service (06) | DRG 603 ==
LOC: ANHED 09-07 03:57 → ANH3MEDSUR 09-07 04:29
PROVIDERS: Admitting Provider General Practice; Emergency Provider Physician Assistant; PCP Family Medicine; Visit Provider Nurse Practitioner
DX: L03.116 Cellulitis of left lower limb (principal); I69.354 Hemiplegia and hemiparesis following cerebral infarction affecting left non-dominant side; E11.9 Type 2 diabetes mellitus without complications; I10 Essential (primary) hypertension; R23.8 Other skin changes; I87.2 Venous insufficiency (chronic) (peripheral); Z79.82 Long term (current) use of aspirin; Z79.84 Long term (current) use of oral hypoglycemic drugs
CPT/HCPCS: 36415; 73701; 80048; 80053; 82565; 82607; 82728; 82746; 83540; 83550; 83605; 83735; 85025; 85027; 85380; 85610; 85652; 85730; 86140; 87040; 93971; 96366; 96367; 96374; 99285; A9270; G0378; J2543; J3370; Q9967

== ENCOUNTER 2024-12-07 10:25 | Emergency (ER) | payer MEDICARE, SELFPAY ==
--- OUTSIDE RECORDS SUMMARY | 2024-12-07 10:27 | XMS_ITS | Encounter Summary ---
Author Organization [facility] Address [address] [place] [address]. [place], [place] [id number] [place] [id number] Care Team Providers Care Photography Spotter Name Role Phone Cortez Pardo MD Primary Care Provider [phone] Encounter Details Date Type Department Care Team (Late st Contact Info) Description 11/24/2021 MyChart Message Enc [facility] Family & Internal Medicine [address] [id number] Cortez Pardo MD [address] [address] Social History Tobacco Use Types Packs/Day Years Used Date Smoking Tobacco: Never Smokeless Tobacco: Never Alcohol Use Standard Drinks/Week Comments Never 0 (1 standard drink = 0.6 oz pur e alcohol) AUDIT-C Answer Date Recorded Frequency of Alcohol Consumption Never 04/15/2019 Average Number of Drinks Not on file 019 Frequency of Binge Drinking Not on file 01/2019 PHQ-2 Answer Date Recorded PHQ-2 Score - If the patient scores above 3, please move on to questions 3-9 0 12/11/2020 Comments No Sex and Gender Information Value Date Recorded Sex Assigned at Female 09/06/2019 11:42 AM CDT Legal Sex Female 8:52 PM CDT Gender Identity Female 09/06/2019 11:42 AM CDT Sexual Orientation Straight 09/06/2019 11 :42 AM CDT documented as of this encounter Functional Status * RETIRED Are you deaf or do you have serious difficulty hearing Answer Date of Assessment Author Status No 04/16/2019 6:15 PM CDT Activ e * RETIRED Are you blind or do you have serious difficulty seeing, even when wearing glasses? Answer Date of Assessment Author Status No 04/16/2019 6:15 PM CDT Activ e * Do you have serious difficulty walking or climbing stairs? Answer Date of Assessment Author Status Yes 04/16/2019 6:15 PM CDT Josephine Hart RN Active * Do you have difficulty dressing or bathing? Answer Date of Assessment Author Status Yes 04/16/2019 6:15 PM CDT Josephine Hart RN Active * Because of a physical, mental, or emotional condition, do you have difficulty doing errands alone such as visiting a doctor's office or shopping? Answer Date of Assessment Author Status Yes 04/16/2019 6:15 PM ABDIAST Josephine Hart RN Active documented as of this encounter Mental Status * Because of a physical, mental, or emotional condition, do you have serious difficulty concentrating, remembering, or making decisions? Answer Entry Date Author Status No 04/16/2019 6:15 PM Josephine Fu RN Active documented in this encounter Plan of Treatment Not on file documented as of this encounter Visit Diagnoses Not on filedocumented in this encounter Care Teams Photography Spotter Relationship Specialty Start Date End Date Cortez Pardo MD PCP - General INTERNAL MEDICINE 05/06/19 documented as of this encounter
--- OUTSIDE RECORDS SUMMARY | 2024-12-07 10:27 | XMS_ITS | Clinical Summary ---
Author Organization [facility] Address [facility] access [facility] [facility] [place] [address] [place] [address] Care Team Providers Care Leaf Coverer Name Role Phone Cortez Pardo MD Primary Care Provider [phone] Allergies No known active allergies Medications aspirin 81 MG chewable tabletIndications :Anticoagulant Therapy Chew 81 mg by mouth daily. 04/30/2019 Active [facility] ADULT 50+ TabIndications:Ce rebrovascular accident (CVA) due to thrombosis of right posterior cerebral artery ([facility]/HCC HHS/HCC) TAKE 1 TABLET BY MOUTH EVERY DAY 90 tablet 05/23/2019 Active Polyethyl Glycol-Propyl Glycol (SYSTANE) 0.4-0.3 % ophthalmic solutionIndicatio ns:Eye pain, bilateral Place 1-2 drops into both eyes as needed. 20 mL 2 07/26/2019 Active acetaminophen 325 MG tablet Take by mouth every 4 (four) hours as needed for Pain. Active atorvastatin 40 MG tabletIndications :Cerebrovascular disease Take 1 tablet (40 mg total) by mouth daily. 90 tablet 1 12/08/2021 Active lisinopril 10 MG tabletIndications :Cerebrovascular disease,Essential hypertension Take 1 tablet (10 mg total) by mouth daily. 90 tablet 1 12/08/2021 Active metFORMIN 500 MG tabletIndications :Cerebrovascular disease Take 1 tablet (500 mg total) by mouth daily with breakfast. 90 tablet 1 12/08/2021 Active amLODIPine 5 MG tabletIndications :Cerebrovascular disease,Essential hypertension Take 1 tablet (5 mg total) by mouth daily. 90 tablet 1 12/08/2021 Active Active Problems Problem Noted Date Diagnosed Date History of embolic stroke 12/11/2020 Cerebrovascular disease 12/02/2019 BMI 25.0-25.9,adult 07/28/2019 Assessment & Plan (07/28/2019 11:21 AM CDT): Stable at this time, I suspect increased weight in part related to dependent edema. Continue to monitor. Medication management 07/28/2019 Assessment & Plan (07/28/2019 11:21 AM CDT): Checking routine labs today (see orders) for ongoing medication monitoring. Pes planus of both feet 07/28/2019 Assessment & Plan (07/28/2019 11:20 AM CDT): Referral to podiatry, as noted above. Peripheral vascular disease 05/28/2019 Assessment & Plan (07/28/2019 11:19 AM CDT): Stable at this time. Continue to monitor Hemosiderin pigmentation of lower extremity due to varicose veins 05/28/2019 Prediabetes 04/20/2019 Assessment & Plan (07/28/2019 11:21 AM CDT): Patient with normalized hemoglobin A1c since starting low-dose metformin. Encouraged her to continue on this medication at present, will recheck in 6 months. If making improvements with respect to diet, may be able to discontinue diabetic medication. Essential hypertension 04/18/2019 Assessment & Plan (07/28/2019 11:19 AM CDT): Nearly controlled. However, patient appears to be suffering side effects from high-dose amlodipine. Rather than fully discontinue this, will decrease to 5 mg and add low-dose lisinopril for additional antihypertensive control. Patient to monitor closely and call with an update in 3 to 4 weeks. If not improving, consider discontinuing amlodipine, increasing LIAM inhibitor and possibly adding a second agent if necessary. Patient voiced understanding and agreement with plan. Resolved Problems Problem Noted Date Diagnosed Date Resolved Date Bilateral leg edema 07/28/2019 07/26/20 Assessment & Plan (07/28/2019 11:20 AM CDT): I suspect patient's primary complaints are related to high-dose amlodipine, as she has no known history of congestive heart failure and denies any symptoms prior to onset of medication use with diagnosis of stroke. We will decrease amlodipine and monitor for improvement, encouraged use of compression hose for additional support. If not improving in 3 to 4 weeks consider complete cessation of amlodipine and possible addition of a diuretic. Pain in both feet 07/28/2019 12/02/2019 Assessment & Plan (07/28/2019 11:17 AM CDT): Perhaps in part related to pes planus, but also related to dependent edema at present. Placing referral to podiatry for additional evaluation and recommendations/treatments. Eye pain, bilateral 07/28/2019 12/02/19 Assessment & Plan (07/28/2019 11:16 AM CDT): Uncertain etiology, doubt related to medications. Encouraged patient to schedule with optometry -- referral placed. Will have patient use gkwf-iqk-jdzszzp moisturizing drops for symptom relief and call if symptoms worsen before seeing an eye primary care sales representative. Cerebrovascular accident (CV A) due to embolic occlusion of right posterior cerebral artery ([facility]) 04/14/2019 12/11/2020 Assessment & Plan (07/28/2019 11:15 AM CDT): Improved. Patient doing well, appears reasonably recovered from her stroke, continues on antiplatelet therapy, moderately dosed high intensity statin, and antihypertensive medication. Ambulating without assistive device. Blood pressure somewhat elevated today. Consider modifying therapy for improved control. Immunizations Name Administration Dates Next Due MODERNA COVID-19 (12+) MRNA, LNP-S, PF, 100 MCG/ 0.5 ML DOSE 02/16/2021,01/19/2021 Family History Medical History Relation Comments No Known Problems Father No Known Problems Mother Relation Status Comments Father Mother Social History Tobacco Use Types Packs/Day Years Used Date Smoking Tobacco: Never Smokeless Tobacco: Never Tobacco Cessation:Counseling Given: No Alcohol Use Standard Drinks/Week Comments Never 0 (1 standard drink = 0.6 oz pur e alcohol) AUDIT-C Answer Date Recorded Frequency of Alcohol Consumption Never 04/15/2019 Average Number of Drinks Not on file 019 Frequency of Binge Drinking Not on file 01/2019 PHQ-2 Answer Date Recorded PHQ-2 Score - If the patient scores above 3, please move on to questions 3-9 0 12/08/2021 Comments No Sex and Gender Information Value Date Recorded Sex Assigned at Female 09/06/2019 11:42 AM CDT Legal Sex Female 8:52 PM CDT Gender Identity Female 09/06/2019 11:42 AM CDT Sexual Orientation Straight 09/06/2019 11 :42 AM CDT Last Filed Vital Signs Vital Sign Reading Time Taken Comments Blood Pressure 110/56 12/08/2021 11:31 AM LIAISON PLANNER Pulse 56 12/08/2021 11:31 AM LIAISON PLANNER Temperature 36.8 ??C (98.2 ??F) 12/08/2021 1 1:31 AM LIAISON PLANNER Respiratory Rate 18 12/08/2021 11:3 1 AM LIAISON PLANNER Oxygen Saturation 90% 12/08/2021 11: 31 AM LIAISON PLANNER Patient has cold hands Inhaled Oxygen Concentration - - Weight 59.4 kg (131 lb) 12/08/2021 11:3 1 AM LIAISON PLANNER Height 153 cm (5' 0.25 ) 12/08/2021 11: 31 AM LIAISON PLANNER Body Mass Index 25.37 12/08/2021 11:31 AM LIAISON PLANNER Plan of Treatment Health Maintenance Due Date Last Done Comments DTaP, Tdap and Td Vaccines ( 1 - Tdap) 1961 Zoster Vaccines (1 of 2) 1992 Annual Medicare Wellness Visit 2007 Dexa Scan (General) 2007 Pneumococcal Vaccine: 65+ Years (1 of 1 - PCV) 2007 RSV Immunization or 60+ Years (1 - 1-dose 75+ series) 2017 COVID-19 Vaccine (3 - 2023-2 5 season) 2024 02/16/2021, 01/19/2021 Influenza Adult (#1) 2024 Meningococcal Vaccine Aged Out No hubert heather eligible based on patient's age to complete this topic RSV Immunizations Under 20 Months Aged Out No longer eligible b ased on patient's age to complete this topic Insurance MEDICARE [facility] MEDICARE [facility] INDEMNITY Advance Directives * Full Code (Latest Code Status on File) Date Activated Date Inactivated Comments 04/16/2019 5:37 PM 04/27/2019 3:36 PM * Full Code Date Activated Date Inactivated Comments 04/14/2019 10:20 PM 04/16/2019 5:29 PM Care Teams Leaf Coverer Relationship Specialty Start Date End Date Cortez Pardo MD PCP - General INTERNAL MEDICINE 05/06/19
--- OUTSIDE RECORDS SUMMARY | 2024-12-07 10:27 | XMS_ITS | Encounter Summary ---
Author Organization [facility] Address [address] [place] [address]. [place] [address] [place] [address] Care Team Providers Care Stage Manager Name Role Phone None, Provider Primary Care Provider Cortez Monroy MD Primary Care Provider [phone] Encounter Details Date Type Department Care Team (Late st Contact Info) Description 05/01/2019 Hospital Follow-up Call [facility] [place] [place] [address] Li Ashraf Social History Tobacco Use Types Packs/Day Years Used Date Smoking Tobacco: Never Smokeless Tobacco: Never Alcohol Use Standard Drinks/Week Comments No 0 (1 standard drink = 0.6 oz pur e alcohol) AUDIT-C Answer Date Recorded Frequency of Alcohol Consumption Never 04/15/2019 Average Number of Drinks Not on file 019 Frequency of Binge Drinking Not on file 01/2019 Comments No Sex and Gender Information Value [...] 6:15 PM CDT Josephine Hart RN Active documented as of this encounter Mental Status * Because of a physical, mental, or emotional condition, do you have serious difficulty concentrating, remembering, or making decisions? Answer Entry Date Author Status No 04/16/2019 6:15 PM CDT Josephine Hart RN Active documented in this encounter Plan of Treatment Not on file documented as of this encounter Visit Diagnoses Not on filedocumented in this encounter Care Teams Stage Manager Relationship Specialty Start Date End Date None, Provider, PCP - General 04/13/19 05/05/19 Cortez Pardo MD PCP - General INTERNAL MEDICINE 05/06/19 documented as of this encounter
[2024-12-07 10:32] VITALS: BP 124/50; PULSE 85; RESP 16; TEMP 36.5; O2SAT 96
--- NOTE | 2024-12-07 11:25 | ED_ITS ---
HPI - General Adult General Chief complaint: Skin/Abscess/Foreign Body Stated complaint: earring inf Source: patient and family Mode of arrival: ambulatory Limitations: no limitations History of Present Illness HPI narrative: Pt presents for evaluation of pain, swelling and redness to both lower earlobes. Symptom onset a few weeks ago after putting in her earrings. She did not clean them before putting in. She indicates shortly thereafter she developed her symptoms. She removed the earrings but her symptoms persist. She does have some associated itching. She denies any fever, chills, nausea, or vomiting. She is currently on doxycycline for cellulitis of the leg, which is being followed by dermatology. She has cleaned the areas with alcohol and has been applying bactine. Related Data Home Medications ?Medication ?Instructions ?Recorded ?Confirmed ?Last Taken ?Type Adult Low Dose Aspirin 1 tab-cap PO DAILY 09/07/24 09/07/24 Unknown History doxycycline hyclate 100 mg capsule mg 12/07/24 Unknown History Allergies Allergy/AdvReac Type Severity Reaction Status Date / Time cephalexin Allergy Mild Unknown Verified 12/07/24 10:41 clindamycin Allergy Unknown Rash Verified 12/07/24 10:41 Review of Systems Review of Systems: CONSTITUTIONAL: Denies fever, chills, or sweats. EYES: Denies visual changes, redness, or discharge. ENT: Reports pain to both lower earlobes. Denies rhinorrhea, congestion, sore throat CARDIOVASCULAR: Denies chest pain, palpitations, or edema. RESPIRATORY: Denies cough or dyspnea. GASTROINTESTINAL: Denies abdominal pain, nausea, vomiting, or diarrhea. GENITOURINARY: Denies dysuria or hematuria. SKIN: Reports redness and itching to her lower earlobes bilaterally MUSCULOSKELETAL: Denies back pain, joint pain, or myalgia. NEUROLOGIC: Denies headache, numbness, dizziness, or weakness. PSYCHIATRIC: Denies anxiety or depression. [facility] Past Medical History Medical History Diabetes Patient reports that she is pre diabetic CVA (cerebral vascular accident) Elevated cholesterol Hypertension Surgical History Surgical History No pertinent past surgical history Family History Family History (Reviewed 12/07/24 @ 11:41 by Cortez Kim, [employer] [facility]) Mother Family history non-contributory Social History Social History Smoking status: Never smoker Alcohol intake: never Substance use: never Do You Feel Safe in your Home?: Yes Lack of Transportation: YES Lack of Food: Never True Current Housing: I Have Housing Concerned About Future Housing: No Difficulty Paying Gas/Electric Bills: No Difficulty Paying for Meds: No Currently Unemployed: No Education: High School Diploma/GED Difficulty w/ Childcare or Family Care: No Living arrangements: with family Gender identity (if verbalized by the patient): Female Spiritual care concerns: No Exam Narrative: GENERAL: Well-appearing, well-nourished, and in no acute distress. HEAD: Normocephalic, atraumatic. EYES: PERRLA and EOMI. ENT: Nares clear, no rhinorrhea or epistaxis. Mucous membranes moist. Oropharynx without tonsillar hypertrophy exudate or other lesions. Bilateral TMs pearly pabon nonbulging NECK: Supple. No adenopathy or masses. No carotid bruits or JVD CHEST: Clear to auscultation. No respiratory distress. No wheezes rales or rhonchi HEART: Regular rate and rhythm. No murmur heard. Normal peripheral pulses. ABDOMEN: Soft, nontender, nondistended, normal active bowel sounds. EXTREMITIES: Normal range of motion. No edema. SKIN: There is trace erythema to bilateral lower earlobes NEURO: No focal deficits. Alert and oriented x3. PSYCH: Normal mood and affect. Course Course Emergency Course: This is an 84-year-old female who presented for evaluation of pain, swelling, redness to both lower ear lobes. She is currently on doxycycline which has good staph coverage. Will add cipro to cover for pseudomonas. She should follow up with her PCP and remain under the care of dermatology. Increase hydration. [id number] agents for symptom management. Follow up with primary provider. Go to the ER for worsening symptoms. Patient in agreement with plan of care. Level of Care: Express Care Visit Vital Signs Vital signs: Vital Signs Temperature 36.5 C 12/07/24 10:32 Pulse Rate 85 12/07/24 10:32 Respiratory Rate 16 12/07/24 10:32 Blood Pressure 124/50 L 12/07/24 10:32 Pulse Oximetry 96 12/07/24 10:32 Oxygen Delivery Room Air 12/07/24 10:32 Temperature 36.5 C 12/07/24 10:32 Pulse Rate 85 12/07/24 10:32 Respiratory Rate 16 12/07/24 10:32 Blood Pressure 124/50 L 12/07/24 10:32 Pulse Oximetry 96 12/07/24 10:32 Oxygen Delivery Room Air 12/07/24 10:32 Medical Decision Making Vital Signs Vital Signs: Vital Signs Temperature 36.5 C 12/07/24 10:32 Pulse Rate 85 12/07/24 10:32 Respiratory Rate 16 12/07/24 10:32 Blood Pressure 124/50 L 12/07/24 10:32 Pulse Oximetry 96 12/07/24 10:32 Oxygen Delivery Room Air 12/07/24 10:32 Temperature 36.5 C 12/07/24 10:32 Pulse Rate 85 12/07/24 10:32 Respiratory Rate 16 12/07/24 10:32 Blood Pressure 124/50 L 12/07/24 10:32 Pulse Oximetry 96 12/07/24 10:32 Oxygen Delivery Room Air 12/07/24 10:32 Discharge Plan Discharge Clinical Impression: Infected pierced ear Qualifiers: Encounter type: initial encounter Laterality: unspecified laterality Qualified Code(s): S01.339A - Puncture wound without foreign body of unspecified ear, initial encounter Patient Disposition: Home, Self-Care Condition: Stable Instructions: Antibiotic Form, Pierced Earlobe Infection (ED) Patient Language: Turkish Prescriptions: New ciprofloxacin HCl [Cipro] 500 mg tablet 500 mg PO Q12H Qty: 20 0RF No Action doxycycline hyclate 100 mg capsule Adult Low Dose Aspirin 81 mg 1 tab-cap PO DAILY lisinopril 10 mg tablet 10 mg PO DAILY Qty: 90 3RF atorvastatin 40 mg tablet 40 mg PO DAILY Qty: 90 3RF metformin 500 mg tablet 500 mg PO DAILY Qty: 90 3RF Follow-up/Referrals: Pedro Guzman MD [Primary Care Provider] - Time of Disposition: 11:36
== END 2024-12-07 11:42 | disposition home or self-care (01) ==
PROVIDERS: Emergency Provider Nurse Practitioner; PCP Family Medicine
DX: S01.332A Puncture wound without foreign body of left ear, initial encounter (principal); S01.331A Puncture wound without foreign body of right ear, initial encounter; L08.9 Local infection of the skin and subcutaneous tissue, unspecified; X58.XXXA Exposure to other specified factors, initial encounter; I10 Essential (primary) hypertension; E78.00 Pure hypercholesterolemia, unspecified; R73.03 Prediabetes; Z86.73 Personal history of transient ischemic attack (TIA), and cerebral infarction without residual deficits
CPT/HCPCS: 99213; G0463